=== PATIENT | female | born 1955 | race Caucasian/White ===

== ENCOUNTER 2019-11-11 08:55 | Outpatient (CLI) | payer MEDICARE, OTHER, SELFPAY ==
[2019-11-11 09:29] LABS: Hematocrit 41.5 % (37.0-47.0); Hemoglobin 13.6 g/dL (12.0-15.0); Mean Corpuscular HGB Conc 32.8 g/dl (32-36); Mean Corpuscular Hemoglobin 29.1 pg (26-34); Mean Corpuscular Volume 88.7 fl (80-100); Mean Platelet Volume 8.9 fl (7.4-10.4); Platelet Count Result 214 k/mm3 (150-375); Red Blood Count 4.68 M/mm3 (4.2-5.4); Red Cell Distribution Width 13.6 % (11.5-14.5); White Blood Count 6.2 K/mm3 (4.5-10.0)
[2019-11-11 09:38] LABS: Add Urine Microscopic? YES; Appearance Urine Clear (Clear); Bacteria Urine Trace /hpf; Bilirubin Urine Negative (Negative); Blood Urine 2+ (Negative); Color Urine Yellow (Yellow); Glucose Urine UA Negative (Negative); Hyaline Casts Urine 15-19 /lpf; Ketones Urine Negative (Negative); Leukocyte Esterase Ur Negative LEU/UL (NEGATIVE); Mucus Urine Moderate /lpf; Nitrate Urine Negative (Negative); Protein Urine 1+ mg/dL (Negative); Specific Grav Ur 1.018 (1.001-1.035); Squamous Epithelial Cell Urine Many /hpf (Few); Urobilinogen Urine Negative mg/dL (<2.0)
[2019-11-11 09:39] LABS: Alanine Aminotransferase 19 U/L (4-35); Albumin Level 4.2 g/dL (3.5-5.1); Alkaline Phosphatase 79 U/L (38-126); Aspartate Amino Transferase 24 U/L (14-36); Bilirubin,Total 0.5 mg/dL (0.2-1.3); Blood Urea Nitrogen 16 mg/dL (7-17); Calcium 8.8 mg/dL (8.4-10.2); Carbon Dioxide 28 mmol/L (22-30); Chloride 104 mmol/L (98-107); Cholesterol 162 mg/dL (0-200); Estimated Glomerular Filt Rate > 60; Glucose 95 mg/dL (65-105); HDL Direct 56 mg/dL; Hemoglobin A1C 6.3 % (<5.7); Potassium 4.3 mmol/L (3.4-5.0); Sodium 137 mmol/L (137-145); Triglycerides 159 mg/dL (<150)
[2019-11-11 09:50] LABS: LDL Cholesterol Direct 72 mg/dL
== END 2019-11-11 08:56 | disposition home or self-care (01) ==
LOC: ANHLAB 09:00
PROVIDERS: PCP Family Medicine; Visit Provider Family Medicine
DX: E78.2 Mixed hyperlipidemia (principal); R73.01 Impaired fasting glucose; R53.83 Other fatigue; E03.9 Hypothyroidism, unspecified
CPT/HCPCS: 36415; 80053; 80061; 81001; 83036; 84443; 85027

== ENCOUNTER 2020-05-02 13:59 | Outpatient (CLI) | payer MEDICARE, OTHER, SELFPAY | END 2020-05-02 14:00 | disposition home or self-care (01) | PROVIDERS: PCP Family Medicine; Visit Provider Family Medicine | DX: E03.9 Hypothyroidism, unspecified (principal) | CPT/HCPCS: 36415; 84443 ==

== ENCOUNTER 2020-07-06 14:35 | Outpatient (CLI) | payer MEDICARE, OTHER, SELFPAY | END 2020-07-06 14:36 | disposition home or self-care (01) | LOC: ANHLAB 14:37 | PROVIDERS: PCP Family Medicine; Visit Provider Family Medicine | DX: E03.9 Hypothyroidism, unspecified (principal) | CPT/HCPCS: 36415; 84443 ==

== ENCOUNTER 2020-11-28 10:17 | Outpatient (CLI) | payer MEDICARE, OTHER, SELFPAY ==
[2020-11-28 10:55] LABS: Alanine Aminotransferase 29 U/L (4-35); Albumin Level 4.3 g/dL (3.5-5.1); Alkaline Phosphatase 88 U/L (38-126); Anion Gap 7 mmol/L (8-16); Aspartate Amino Transferase 31 U/L (14-36); Bilirubin,Total 0.4 mg/dL (0.2-1.3); Blood Urea Nitrogen 10 mg/dL (7-17); Calcium 9.5 mg/dL (8.4-10.2); Carbon Dioxide 31 mmol/L (22-30); Chloride 101 mmol/L (98-107); Estimated Glomerular Filt Rate > 60; Glucose 91 mg/dL (65-105); Potassium 3.9 mmol/L (3.4-5.0); Sodium 139 mmol/L (137-145)
== END 2020-11-28 10:18 | disposition home or self-care (01) ==
PROVIDERS: PCP Family Medicine; Visit Provider Family Medicine
DX: E78.5 Hyperlipidemia, unspecified (principal); I10 Essential (primary) hypertension; R53.83 Other fatigue
CPT/HCPCS: 36415; 80053

== ENCOUNTER 2020-12-14 15:46 | Outpatient (CLI) | payer MEDICARE, OTHER, SELFPAY ==
[2020-12-14 16:39] LABS: Cholesterol 151 mg/dL (0-200); HDL Direct 57 mg/dL; Triglycerides 130 mg/dL (<150)
[2020-12-14 16:51] LABS: LDL Cholesterol Direct 63 mg/dL
[2020-12-14 17:09] LABS: Thyroid Stimulating Hormone 0.605 uIU/mL (0.465-4.680)
== END 2020-12-14 15:47 | disposition home or self-care (01) ==
LOC: ANHLAB 15:48
PROVIDERS: PCP Family Medicine; Visit Provider Family Medicine
DX: E03.9 Hypothyroidism, unspecified (principal); E78.5 Hyperlipidemia, unspecified
CPT/HCPCS: 36415; 80061; 84443

== ENCOUNTER 2020-12-21 13:56 | Outpatient (CLI) | payer MEDICARE, OTHER, SELFPAY ==
--- NOTE | ~2020-12-21 | CT_ITS ---
EXAMINATION: CT lung screening DATE: 12/21/2020 14:20 INDICATION: Personal history of tobacco dependence, prior smoker with 70 pack-year history TECHNIQUE: Computed tomography (CT) of the chest was performed without intravenous contrast. The dose -length product (DLP) was 232.49 mGy-cm. 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 COMPARISON: 09/17/2018 FINDINGS: There is moderate emphysema. There are multiple stable pulmonary nodules. A 4 mm subpleural nodule of the right lower lobe on image 73 demonstrates interval increase in size, previously measur ing 3 mm. There is minimal air space opacity in the posteromedial aspect of the right lower lobe, lik graciela infectious or inflammatory. Focal atelectasis is noted in the lingula. There is no pleural effusi on or pneumothorax. No pathologically enlarged thoracic lymph nodes are identified. The heart size is normal. Calcified coronary artery atherosclerosis is noted. There is severe thoracic spondylosis. IMPRESSION: 1. Lung-RADS category 2: Benign appearance or behavior. Continue annual screening with noncontrast lo w-dose chest CT in 12 months. Reviewed, dictated and finalized at location B. IMPRESSION: 1. Lung-RADS category 2: Benign appearance or behavior. Continue annual screeni ng with noncontrast low-dose chest CT in 12 months.
== END 2020-12-21 13:57 | disposition home or self-care (01) ==
LOC: ANHIMG 13:59
PROVIDERS: PCP Family Medicine; Visit Provider Family Medicine
DX: Z87.891 Personal history of nicotine dependence (principal)
CPT/HCPCS: 71271

== ENCOUNTER 2021-06-07 15:36 | Outpatient (CLI) | payer MEDICARE, OTHER, SELFPAY ==
[2021-06-07 16:45] LABS: Alanine Aminotransferase 20 U/L (4-35); Albumin Level 4.1 g/dL (3.5-5.1); Alkaline Phosphatase 79 U/L (38-126); Anion Gap 9 mmol/L (8-16); Aspartate Amino Transferase 27 U/L (14-36); Bilirubin,Total 0.4 mg/dL (0.2-1.3); Blood Urea Nitrogen 21 mg/dL (7-17); Carbon Dioxide 28 mmol/L (22-30); Chloride 99 mmol/L (98-107); Estimated Glomerular Filt Rate > 60; Glucose 95 mg/dL (65-110); Potassium 4.2 mmol/L (3.4-5.0); Sodium 136 mmol/L (137-145)
[2021-06-07 17:14] LABS: Thyroid Stimulating Hormone 0.253 uIU/mL (0.465-4.680)
== END 2021-06-07 15:37 | disposition home or self-care (01) ==
LOC: ANHLAB 15:39
PROVIDERS: PCP Family Medicine; Visit Provider Family Medicine
DX: E03.9 Hypothyroidism, unspecified (principal); I10 Essential (primary) hypertension
CPT/HCPCS: 36415; 80053; 84443

== ENCOUNTER 2021-08-07 15:28 | Outpatient (CLI) | payer MEDICARE, OTHER, SELFPAY ==
[2021-08-07 16:28] LABS: Free T4 Free Thyroxine 0.82 ng/mL (0.78-2.19)
== END 2021-08-07 15:29 | disposition home or self-care (01) ==
LOC: ANHLAB 15:30
PROVIDERS: PCP Family Medicine; Visit Provider Family Medicine
DX: E03.9 Hypothyroidism, unspecified (principal)
CPT/HCPCS: 36415; 84439; 84443

== ENCOUNTER 2021-10-21 10:28 | Inpatient (IN) | payer MEDICARE, OTHER, SELFPAY ==
[2021-10-21] VITALS (56 sets, daily range): BP systolic 84–158; BP diastolic 59–105; PULSE 80–103; RESP 10–28; TEMP 36.2–37.1; O2SAT 79–100; BMI 36.7
--- NOTE | ~2021-10-21 | CT_ITS ---
EXAMINATION: CTA chest PE protocol DATE: 10/21/2021 14:50 INDICATION: sob, covid + TECHNIQUE: Computed tomography angiography (CTA) of the chest was performed with 100 mL Omnipaque-350 intravenous contrast timed to evaluate the pulmonary arteries. Coronal maximum intensity projection 3D-reconstructions were created by the technologist. The dose-length product (DLP) was 757.38 mGy-cm. Automated exposure control and iterative reconstruction technique were employed. COMPARISON: CT lung screening 12/21/2020. CT chest without 09/17/2018 and 10/18/2015. FINDINGS: Study quality: Adequate. Pulmonary arteries: No pulmonary emboli detected. Thoracic aorta: Normal. Lung parenchyma and airways: Lingular scar/atelectasis. Emphysematous change. Apical pleural scarring . Multiple pulmonary nodules. Thoracic inlet, axillae and chest wall: 1.6 x 2.1 cm heterogeneously enhancing soft tissue mass in th e right lower neck which may represent a lymph node or ectopic thyroid, if ectopic thyroid and may co ntain a 1.7 cm cyst. Mediastinum: Normal. Heart and pericardium: Normal. Coronary artery calcifications: Mild. Pleura: Unremarkable. Upper abdomen: Multiple left renal cysts. Mild ectopic left kidney. Significant pancreatic fat infilt ration. Hiatal hernia. Bones: No acute osseous finding. IMPRESSION: No CT evidence of acute pulmonary embolus. Multiple pulmonary nodules, prior recommendations are unch anged. Right lower neck lymphadenopathy versus ectopic thyroid. Recommend outpatient thyroid ultrasou nd for further evaluation. Reviewed, dictated and finalized at location K. IMPRESSION: No CT evidence of acute pulmonary embolus. Multiple pulmonary nodules, prior re commendations are unchanged. Right lower neck lymphadenopathy versus ectopic th yroid. Recommend outpatient thyroid ultrasound for further evaluation.
--- NOTE | ~2021-10-21 | XR_ITS ---
EXAMINATION: XR chest 1V portable DATE: 10/21/2021 11:24 INDICATION: Shortness of breath TECHNIQUE: frontal and lateral views of the chest were obtained. COMPARISON: Chest CT dated 12/21/2020 FINDINGS: Emphysema but appreciated on prior CT with mild biapical pleural-parenchymal scarring. Mild lingular atelectasis/scarring along side a small left pericardial fat pad. No other airspace opacities, pulmon lydia edema, pleural effusion or pneumothorax. The cardiomediastinal silhouette is normal. Small hiatal hernia. IMPRESSION: 1. Emphysema with biapical pleural-parenchymal scarring and mild lingular atelectasis/scarring. No ac [place] cardiopulmonary disease. 2. Small hiatal hernia. Reviewed, dictated and finalized at location A. IMPRESSION: 1. Emphysema with biapical pleural-parenchymal scarring and mild lingular atele ctasis/scarring. No acute cardiopulmonary disease. 2. Small hiatal hernia.
--- NOTE | 2021-10-21 11:03 | ECG_ITS ---
Measurements Intervals [place] Rate: 98 P: 37 PA: 176 QRS: -28 QRSD: 69 T: 30 QT: 309 QTc: 394 Interpretive Statements SINUS RHYTHM LOW QRS VOLTAGE IN PRECORDIAL LEADS CONSIDER ANTERIOR INFARCT, AGE INDETERMINATE INFERIOR INFARCT, AGE INDETERMINATE BASELINE ARTIFACT- I, II, AVR, AVL, AVF, V1 ABNORMAL ECG Electronically Signed On 10-21-2021 11:28:42 CDT by Ricardo Mccarthy D.O.
[2021-10-21 11:20] LABS: Basophils Percent Auto 0.2 % (0.2-1.2); Eosinophils Absolute Auto 0.1 K/mm3 (0-0.3); Hematocrit 37.9 % (37.0-47.0); Hemoglobin 12.1 g/dL (12.0-15.0); Immature Granulocyte Absolute 0.04 K/mm3 (0.00-0.031); Immature Granulocyte Percent A 0.5 % (0-0.5); Lymphocytes Percent Auto 13.7 % (18.3-44.2); Mean Corpuscular HGB Conc 31.9 g/dl (32-36); Mean Corpuscular Hemoglobin 29.7 pg (26-34); Mean Corpuscular Volume 92.9 fl (80-100); Mean Platelet Volume 9.5 fl (7.4-10.4); Monocytes Absolute Auto 0.7 K/mm3 (0.1-0.6); Monocytes Percent Auto 9.1 % (2.6-8.5); Neutrophils Percent Auto 75.5 % (45.5-73.1); Platelet Count Result 169 k/mm3 (150-375); Red Blood Count 4.08 M/mm3 (4.2-5.4); Red Cell Distribution Width 15.3 % (11.5-14.5)
--- NOTE | 2021-10-21 11:24 | ED.GENADULT ---
HPI - General Adult General Chief complaint: Unspecified <CABRERA Shannon Last Filed: 10/21/21 15:55> Stated complaint: Sore Throat, Dizzy <CABRERA Shannon Last Filed: 10/21/21 15:55> Time Seen by Provider: 10/21/21 11:03 <CABRERA Shannon Last Filed: 10/21/21 15:55> Source: patient <CABRERA Shannon Last Filed: 10/21/21 15:55> Mode of arrival: ambulatory <CABRERA Shannon Last Filed: 10/21/21 15:55> Limitations: no limitations <CABRERA Shannon Last Filed: 10/21/21 15:55> History of Present Illness HPI narrative: This is a 66 year old female that presents to the ER for cold symptoms present over the last couple of days. Reports sore throat, cough, myalgias, headache, and shortness of breath. Reports history of COPD. She is COVID and influenza vaccinated. Denies fever, chest pain or lower extremity edema. <CABRERA Shannon Last Filed: 10/21/21 15:55> Related Data Home medications: Home Medications Medication Instructions Recorded Confirmed albuterol sulfate 90 mcg/actuation 1 puff INHALATION Q4H PRN 04/27/19 10/21/21 aerosol inhaler omega-3 fatty acids [Fish Oil] 1,000 mg PO DAILY 10/21/21 10/21/21 tizanidine 4 mg PO HS 10/21/21 10/21/21 <CABRERA Shannon Last Filed: 10/21/21 15:55> Allergies/adverse reactions: Allergies Allergy/AdvReac Type Severity Reaction Status Date / Time No Known Allergies Allergy Verified 10/21/21 11:06 <CABRERA Shannon Last Filed: 10/21/21 15:55> Review of Systems Review of Systems: CONSTITUTIONAL: Denies fever ENT: Reports congestion, sore throat CARDIOVASCULAR: Denies chest pain, or edema. RESPIRATORY: Reports cough and dyspnea. MUSCULOSKELETAL: Reports back pain, joint pain, and myalgia. NEUROLOGIC: Reports headache. Denies numbness, or weakness. <Anna Gamble PA-C - Last Filed: 10/21/21 15:55> All systems reviewed & are unremarkable except as noted in HPI and below <Anna Gamble PA-C - Last Filed: 10/21/21 15:55> PMFSH Past Medical History Medical History: Medical History (Updated 10/21/21 @ 15:50 by Anna Gamble PA-C) Acquired hypothyroidism COPD (chronic obstructive pulmonary disease) Fibromyalgia HLD (hyperlipidemia) HTN (hypertension) <Anna Gamble PA-C - Last Filed: 10/21/21 15:55> Surgical History Surgical History: Surgical History History of unilateral oophorectomy Hx of thumb surgery L x 3 due to infx Status post carpal tunnel release Status post cataract extraction Status post hernia repair Status post hysterectomy Status post vein stripping <Anna Gamble PA-C - Last Filed: 10/21/21 15:55> Family History Family History: Family History Mother Family history of schizophrenia Acute myocardial infarction, Onset Age: 83 Family history of Alzheimer's disease Father Acute myocardial infarction, Onset Age: 75 <Anna Gamble PA-C - Last Filed: 10/21/21 15:55> Social History Social History: Social History Smoking packs per day: 2 Smoking cigarettes per day: 40.0 Years smoked: 35 Smoking pack-years: 70.00 Smoking status: Former smoker Tobacco type: cigarettes Second hand tobacco smoke exposure: Yes Smoking end date: 06/03/06 Alcohol intake: current Alcohol use details: rare Substance use: never Substance use type: does not use Gender identity (if verbalized by the patient): Female <Anna Gamble PA-C - Last Filed: 10/21/21 15:55> Exam Narrative: GENERAL: Well-appearing, well-nourished, and in no acute distress. HEAD: Normocephalic, atraumatic. EYES: EOMI. ENT: Nares clear, no rhinorrhea or epistaxis. Mucous membranes moist. Oropharynx with mild redness, without tonsillar hypertrophy, exu
[2021-10-21 11:31] LABS: Lactic Acid Reflex 0.7 mmol/L (0.7-2.0)
[2021-10-21 11:32] LABS: Prothrombin Time 13.1 Seconds (11.1-14.7)
[2021-10-21 11:35] LABS: Alanine Aminotransferase 21 U/L (6-35); Albumin Level 3.9 g/dL (3.5-5.1); Alkaline Phosphatase 84 U/L (38-126); Anion Gap 8 mmol/L (8-16); Aspartate Amino Transferase 29 U/L (14-36); Bilirubin,Total 0.4 mg/dL (0.2-1.3); Blood Urea Nitrogen 21 mg/dL (7-17); CRP 6.8 mg/dL (<1.0); Calcium 8.7 mg/dL (8.4-10.2); Carbon Dioxide 25 mmol/L (22-30); Chloride 102 mmol/L (98-107); Estimated CRCL calculation 40 ml/min; Estimated Glomerular Filt Rate 41; Glucose 86 mg/dL (65-110); Lactate Dehydrogenase 378 U/L (313-618); Potassium 4.3 mmol/L (3.4-5.0); Sodium 135 mmol/L (137-145)
--- NOTE | 2021-10-21 11:45 | PC.NURSE ---
Report to SAVITA Dixon, to continue care. Preparing to swab pt as ordered and give med po.
[2021-10-21 11:52] LABS: Troponin I < 0.012 ng/mL (0.000-0.034)
[2021-10-21] MEDS: ACETAMINOPHEN 500 MG TABLET 1000 MG PO (11:55)
[2021-10-21 13:05] LABS: Influenza A QL RT-PCR Negative (Negative); Influenza B QL RT-PCR Negative (Negative); SARS-CoV-2 RNA PCR Positive
--- NOTE | 2021-10-21 13:23 | PC.NURSE ---
PT 85% ROOM AIR AND PLACED ON 3LNC
[2021-10-21] MEDS: SODIUM CHLORIDE 0.9% IV 500 ML 999 ML IV CONT (13:39)
--- NOTE | 2021-10-21 13:43 | PC.NURSE ---
called lab and talked to Caprice at 1341 to add on a D dimer
[2021-10-21 14:03] LABS: D Dimer 0.52 ug/mL (<0.48)
--- NOTE | 2021-10-21 15:15 | PM.IMHP ---
H&P: HPI History of Present Illness Date/Time: 10/21/21 15:15 Chief Complaint: Shortness of breath. Narrative: This is a 66-year-old female with COPD, hypertension, hyperlipidemia, and hypothyroidism who presented to the emergency department from home for evaluation of shortness of breath and sore throat. She has not been feeling well for about 5 days with generalized malaise, sore throat, mild cough, headache, nausea, and decreased oral intake. The last couple of days she has been feeling increasingly short of breath from baseline and she came in today for evaluation. In the emergency department she had periods of time where her SPO2 was in the upper 80s and she has been started on 2 L nasal cannula with improvement. She did test positive for SARS-CoV-2 by PCR; she was vaccinated for COVID and has received 1 booster. She denies fever but had hot flashes and sweats earlier today. She continues to have nausea but no vomiting. No chest pain, pleuritic pain, or diarrhea. Review of Systems Review of Systems: 12 systems were reviewed. She has chronic dyspnea on exertion, for instance she will get winded when going up a flight of steps and she typically walks with a cart while out shopping due to shortness of breath. She is no longer on inhalers at home due to history of recurrent rash. She denies wheezing. No orthopnea, PND, or lower extremity edema. Except as documented, all other systems were reviewed and are negative PMFSH Past Medical History Medical History (Updated 10/21/21 @ 21:45 by Lucia Ramirez PA-C) Acquired hypothyroidism Chronic GERD Chronic obstructive pulmonary disease Fibromyalgia Hyperlipidemia Hypertension Overactive bladder Pulmonary nodules Surgical History Surgical History History of unilateral oophorectomy Hx of thumb surgery L x 3 due to infx Status post carpal tunnel release Status post cataract extraction Status post hernia repair Status post hysterectomy Status post vein stripping Family History Family History Mother Acute myocardial infarction, Onset Age: 83 Family history of Alzheimer's disease Family history of schizophrenia Father Acute myocardial infarction, Onset Age: 75 Sibling Heart disease Multiple sclerosis Blood clotting tendency Social History Social History (Updated 10/21/21 @ 18:47 by Lucia Ramirez PA-C) Social History: Surrogate decision maker: Radu Cervantes, spouse. CODE STATUS: Full code. Smoking packs per day: 2 Smoking cigarettes per day: 40.0 Years smoked: 35 Smoking pack-years: 70.00 Smoking status: Former smoker Tobacco type: cigarettes Second hand tobacco smoke exposure: Yes Smoking end date: 01/01/09 Alcohol intake: never Alcohol use details: rare Substance use: never Substance use type: does not use Spiritual care concerns: No Meds Home Medications and Allergies Home Medications Medication Instructions Recorded Confirmed Type albuterol sulfate 90 mcg/actuation 1 puff INHALATION Q4H PRN 04/27/19 10/21/21 History aerosol inhaler pregabalin 150 mg capsule 150 mg PO TID #270 cap 06/29/20 10/21/21 Rx tramadol 50 mg tablet 50 mg PO Q6H PRN #60 tablet 06/29/20 10/21/21 Rx duloxetine 30 mg capsule,delayed 30 mg PO QID #360 cap 04/07/21 10/21/21 Rx release fluoxetine 20 mg capsule 20 mg PO DAILY #90 cap 04/07/21 10/21/21 Rx amlodipine 5 mg tablet 5 mg PO DAILY #90 tablet 08/07/21 10/21/21 Rx lisinopril 40 mg tablet 40 mg PO DAILY #90 tablet 08/07/21 10/21/21 Rx omeprazole 40 mg capsule,delayed 40 mg PO DAILY #90 cap 08/07/21 10/21/21 Rx release meloxicam 15 mg tablet 15 mg PO DAILY #90 tablet 09/06/21 10/21/21 Rx rosuvastatin 20 mg tablet 20 mg PO DAILY #90 tablet 09/06/21 10/21/21 Rx mirabegron 50 mg tablet,extended 50 mg PO DAILY #90 tablet 10/13/21 10/21/21 Rx release 24 hr levothyroxi
[2021-10-21] MEDS: REMDESIVIR 200 MG/NS 250 ML 200 MG/250 ML BAG 250 MG IVPB (15:17)
--- NOTE | 2021-10-21 16:40 | PC.NURSE ---
This patient, Leslee Cervantes, was admitted to [facility] Surg Room 303-01. Patient/family oriented to hospital policies and general routines including ID bracelet, bed and alarms, visiting hours, pain management, procedures, bathroom and other care routines, personal items, smoking policy, room service/diet, and visiting hours. Destiny BARNEY Information on how to activate the Rapid Response Team has been discussed. Patient/Family are encouraged to report perceived risks to care and to ask questions if they do not understand what they are told or what they should do.
[2021-10-21] MEDS: SODIUM CHLORIDE 0.9% IV 1,000 ML 100 ML IV CONT (18:06)
[2021-10-21] MEDS: TIZANIDINE HCL 4 MG TABLET PO (22:36)
[2021-10-22] VITALS (8 sets, daily range): BP systolic 121–143; BP diastolic 71–91; PULSE 73–103; RESP 16–20; TEMP 36.5–36.8; O2SAT 93–95
[2021-10-22] MEDS: LEVOTHYROXINE SODIUM 100 MCG TABLET PO (05:45)
[2021-10-22 06:26] LABS: Hematocrit 35.5 % (37.0-47.0); Hemoglobin 11.2 g/dL (12.0-15.0); Mean Corpuscular HGB Conc 31.5 g/dl (32-36); Mean Corpuscular Hemoglobin 29.7 pg (26-34); Mean Corpuscular Volume 94.2 fl (80-100); Mean Platelet Volume 9.6 fl (7.4-10.4); Platelet Count Result 160 k/mm3 (150-375); Red Blood Count 3.77 M/mm3 (4.2-5.4)
[2021-10-22 06:36] LABS: Alanine Aminotransferase 21 U/L (6-35); Albumin Level 3.7 g/dL (3.5-5.1); Alkaline Phosphatase 78 U/L (38-126); Anion Gap 8 mmol/L (8-16); Aspartate Amino Transferase 25 U/L (14-36); Bilirubin,Total 0.2 mg/dL (0.2-1.3); Blood Urea Nitrogen 24 mg/dL (7-17); CRP 6.5 mg/dL (<1.0); Calcium 8.2 mg/dL (8.4-10.2); Carbon Dioxide 23 mmol/L (22-30); Chloride 104 mmol/L (98-107); Estimated CRCL calculation 57 ml/min; Estimated Glomerular Filt Rate > 60; Glucose 125 mg/dL (65-110); Lactate Dehydrogenase 363 U/L (313-618); Magnesium 1.9 mg/dL (1.6-2.3); Potassium 4.6 mmol/L (3.4-5.0); Sodium 135 mmol/L (137-145)
[2021-10-22 06:38] LABS: Prothrombin Time 13.1 Seconds (11.1-14.7)
[2021-10-22] MEDS: DULoxetine HCL 30 MG CAPSULE.DR PO ×4 (08:27→20:35)
[2021-10-22] MEDS: PANTOPRAZOLE 40 MG TABLET PO ×2 (08:27→17:30)
[2021-10-22] MEDS: DEXAMETHASONE 2 MG TABLET 6 MG PO (08:27)
[2021-10-22] MEDS: ROSUVASTATIN 10 MG TABLET 20 MG PO (08:27)
[2021-10-22] MEDS: MIRABEGRON 50 MG ER TABLET PO (08:28)
[2021-10-22] MEDS: FLUoxetine HCL 20 MG CAPSULE PO (08:28)
[2021-10-22] MEDS: OMEGA 3 POLYUNSAT FATTY ACIDS 1 GM CAP PO (08:28)
[2021-10-22] MEDS: lisinopriL 20 MG TABLET 40 MG PO (08:28)
[2021-10-22] MEDS: MELOXICAM 7.5 MG TABLET 15 MG PO (08:28)
[2021-10-22] MEDS: amLODIPine BESYLATE 5 MG TABLET PO (08:28)
[2021-10-22] MEDS: LOPERAMIDE HCL 2 MG CAPSULE 4 MG PO (08:29)
[2021-10-22] MEDS: ENOXAPARIN 40 MG/0.4 ML SYRINGE SUB-Q (08:29)
[2021-10-22] MEDS: guaiFENesin 12 HR 600 MG TABCR PO ×2 (08:29→20:35)
[2021-10-22] MEDS: PREGABALIN (*CRX) 75 MG CAPSULE 150 MG PO ×3 (08:31→17:30)
--- NOTE | 2021-10-22 11:03 | PM.IMPN ---
Progress Note: A&P Assessment and Plan (1) COVID-19: Code(s): U07.1 - COVID-19 Status: Acute Assessment and Plan: Place in COVID19 isolation precautions, cardiac monitoring, and continuous pulse ox Monitor serum electrolytes, CRP, Lactic acid, troponin, CBC, WBC, temperature curve and follow cultures Oxygen via NC; wean as tolerated. Keep spO2 greater than 91% Hold IV abx, minimal leuokocytosis, if patient appears to have a bacterial pneumonia, IV Ceftriaxone 2 gram IV q24hr and Azithromycin 500mg IV 24 hours will be initiated Consider Consulting Pulmonary if the patient has an increased oxygen demand. Patient does not wear oxygen at baseline. When appropriate start CPAP or Vapotherm to maintain oxygen saturation Pt is a candidate for Remdesivir and Dexamethasone, continue treatment according to suggested guidelines. Remdesivir 200 mg IV x1, then 100 mg IV x4 days, dexamethasone 6 mg IV daily x 10 days, or until discharge Combivent 2 puffs QID, PRN albuterol MDI and mucinex BID PO. If oxygen requirement increase, consider baricitinib (CLEO inhibtor) 4 mg PO daily for 14 days, or until discharge. Add Imodium for diarrhea GI prophylaxis: PPI Hold IV fluids due to possible fluid volume overload due to COVID, consider IV Lasix if patient appears to be fluid volume overloaded (2) Hypoxia: Code(s): R09.02 - Hypoxemia Status: Acute Assessment and Plan: Secondary to COVID-19 and COPD. Wean oxygen as tolerated. -*-improving (3) Acute kidney injury: Code(s): N17.9 - Acute kidney failure, unspecified Status: Acute Assessment and Plan: Secondary to dehydration from poor oral intake. Hydrate overnight and encourage oral intake. Avoid nephrotoxic agents and repeat renal function in a.m. (4) Dehydration: Code(s): E86.0 - Dehydration Status: Acute Assessment and Plan: Plan is as detailed above. (5) Hypertension: Code(s): I10 - Essential (primary) hypertension Status: Acute Assessment and Plan: Blood pressures were reviewed and they have been running a bit high. Continue antihypertensives and monitor daily. (6) Pulmonary nodules: Code(s): R91.8 - Other nonspecific abnormal finding of lung field Status: Acute Assessment and Plan: Being followed on serial CT scans as an outpatient. (7) Abnormal imaging of thyroid: Code(s): R93.89 - Abnormal findings on diagnostic imaging of other specified body structures Status: Acute Assessment and Plan: CT shows right lower neck lymphadenopathy versus ectopic thyroid. Thyroid ultrasound can be done as an outpatient. (8) Chronic obstructive pulmonary disease: Code(s): J44.9 - Chronic obstructive pulmonary disease, unspecified Status: Acute Assessment and Plan: No significant wheezing on exam. Albuterol HFA p.r.n. Subjective Date/time seen: 10/22/21 11:03 Patient doing well this morning. She is currently on room air at 94% SpO2. Dexamethasone and remdesivir continue. No acute concerns reported by RN during the night. Patient denies any acute chest pain, shortness breast, nausea, vomiting upset stomach or diarrhea. Review of Systems Review of Systems: All systems reviewed & are unremarkable except as noted in HPI and below Exam Narrative: General: Mildly ill-appearing female sitting up in bed. Weight: 94.1 kg. BMI: 36.7 HEENT: PERRL, EOMI. Sclerae anicteric. Tacky mucous membranes. Neck: Supple. Soft masslike area at the base of the right neck: Nontender. Respiratory: Respirations are nonlabored and she is speaking in full sentences. Lung sounds are diminished without wheezing. Cardiovascular: Regular rate and rhythm with S1-S2. Gastrointestinal: Abdomen is soft, nontender, and nondistended with positive bowel sounds. Skin: Warm and dry. No rash or lesions on limited exam. Extremities: No cyanosis, clubbing, or
[2021-10-22] MEDS: TIZANIDINE HCL 4 MG TABLET PO (20:35)
[2021-10-22] MEDS: REMDESIVIR 100 MG/NS 250 ML 100 MG/250 ML BAG 250 MG IVPB (21:14)
[2021-10-23] VITALS (7 sets, daily range): BP systolic 120–143; BP diastolic 65–93; PULSE 79–99; RESP 16–18; TEMP 36.3–36.6; O2SAT 94–97
[2021-10-23] MEDS: LOPERAMIDE HCL 2 MG CAPSULE PO ×3 (04:58→11:03)
[2021-10-23] MEDS: LEVOTHYROXINE SODIUM 100 MCG TABLET PO (05:30)
[2021-10-23 07:47] LABS: Hematocrit 35.2 % (37.0-47.0); Hemoglobin 11.5 g/dL (12.0-15.0); Immature Granulocyte Absolute 0.03 K/mm3 (0.00-0.031); Immature Granulocyte Percent A 0.5 % (0-0.5); Lymphocytes Absolute Auto 1.07 K/mm3 (0.9-3.2); Lymphocytes Percent Auto 17.1 % (18.3-44.2); Mean Corpuscular HGB Conc 32.7 g/dl (32-36); Mean Corpuscular Hemoglobin 29.8 pg (26-34); Mean Corpuscular Volume 91.2 fl (80-100); Mean Platelet Volume 9.4 fl (7.4-10.4); Monocytes Absolute Auto 0.5 K/mm3 (0.1-0.6); Monocytes Percent Auto 7.5 % (2.6-8.5); Neutrophils Absolute Auto 4.7 K/mm3 (1.3-6.7); Neutrophils Percent Auto 74.9 % (45.5-73.1); Platelet Count Result 173 k/mm3 (150-375); Red Blood Count 3.86 M/mm3 (4.2-5.4); Red Cell Distribution Width 15.1 % (11.5-14.5); White Blood Count 6.3 K/mm3 (4.5-10.0)
[2021-10-23 07:57] LABS: Alanine Aminotransferase 21 U/L (6-35); Albumin Level 3.7 g/dL (3.5-5.1); Alkaline Phosphatase 74 U/L (38-126); Anion Gap 6 mmol/L (8-16); Aspartate Amino Transferase 24 U/L (14-36); Bilirubin,Total 0.2 mg/dL (0.2-1.3); Blood Urea Nitrogen 20 mg/dL (7-17); Calcium 8.7 mg/dL (8.4-10.2); Carbon Dioxide 26 mmol/L (22-30); Chloride 105 mmol/L (98-107); Estimated CRCL calculation 64 ml/min; Estimated Glomerular Filt Rate > 60; Glucose 102 mg/dL (65-110); Sodium 137 mmol/L (137-145)
[2021-10-23 07:59] LABS: INR 1.1; Prothrombin Time 13.6 Seconds (11.1-14.7)
[2021-10-23] MEDS: MELOXICAM 7.5 MG TABLET 15 MG PO (09:06)
[2021-10-23] MEDS: ENOXAPARIN 40 MG/0.4 ML SYRINGE SUB-Q (09:06)
[2021-10-23] MEDS: DULoxetine HCL 30 MG CAPSULE.DR PO (09:06)
[2021-10-23] MEDS: amLODIPine BESYLATE 5 MG TABLET PO (09:06)
[2021-10-23] MEDS: MIRABEGRON 50 MG ER TABLET PO (09:06)
[2021-10-23] MEDS: DEXAMETHASONE 2 MG TABLET 6 MG PO (09:06)
[2021-10-23] MEDS: guaiFENesin 12 HR 600 MG TABCR PO (09:06)
[2021-10-23] MEDS: OMEGA 3 POLYUNSAT FATTY ACIDS 1 GM CAP PO (09:07)
[2021-10-23] MEDS: FLUoxetine HCL 20 MG CAPSULE PO (09:07)
[2021-10-23] MEDS: lisinopriL 20 MG TABLET 40 MG PO (09:07)
[2021-10-23] MEDS: ROSUVASTATIN 10 MG TABLET 20 MG PO (09:07)
[2021-10-23] MEDS: PANTOPRAZOLE 40 MG TABLET PO (09:07)
[2021-10-23] MEDS: PREGABALIN (*CRX) 75 MG CAPSULE 150 MG PO (09:17)
--- NOTE | 2021-10-23 09:58 | PM.DS ---
DS: Admitting Diagnosis Discharge Date 10/23/2021 Admitting Diagnosis COVID-19 pneumonia Acute hypoxic respiratory failure requiring supplemental oxygen Diarrhea DS: Discharge Diagnosis Discharge Diagnosis (1) COVID-19: Code(s): U07.1 - COVID-19 Status: Acute Assessment and Plan: Place in [place] [address] isolation precautions, cardiac monitoring, and continuous pulse ox Monitor serum electrolytes, CRP, Lactic acid, troponin, CBC, WBC, temperature curve and follow cultures Oxygen via NC; wean as tolerated. Keep spO2 greater than 91% Hold IV abx, minimal leuokocytosis, if patient appears to have a bacterial pneumonia, IV Ceftriaxone 2 gram IV q24hr and Azithromycin 500mg IV 24 hours will be initiated Consider Consulting Pulmonary if the patient has an increased oxygen demand. Patient does not wear oxygen at baseline. When appropriate start CPAP or Vapotherm to maintain oxygen saturation Pt is a candidate for Remdesivir and Dexamethasone, continue treatment according to suggested guidelines. Remdesivir 200 mg IV x1, then 100 mg IV x4 days, dexamethasone 6 mg IV daily x 10 days, or until discharge Combivent 2 puffs QID, PRN albuterol MDI and mucinex BID PO. If oxygen requirement increase, consider baricitinib (CLEO inhibtor) 4 mg PO daily for 14 days, or until discharge. Add Imodium for diarrhea GI prophylaxis: PPI Hold IV fluids due to possible fluid volume overload due to COVID, consider IV Lasix if patient appears to be fluid volume overloaded (2) Hypoxia: Code(s): R09.02 - Hypoxemia Status: Acute Assessment and Plan: Secondary to COVID-19 and COPD. Wean oxygen as tolerated. -*-improving (3) Acute kidney injury: Code(s): N17.9 - Acute kidney failure, unspecified Status: Acute Assessment and Plan: Secondary to dehydration from poor oral intake. Hydrate overnight and encourage oral intake. Avoid nephrotoxic agents and repeat renal function in a.m. --improved (4) Dehydration: Code(s): E86.0 - Dehydration Status: Acute Assessment and Plan: Plan is as detailed above. (5) Hypertension: Code(s): I10 - Essential (primary) hypertension Status: Acute Assessment and Plan: Blood pressures were reviewed and they have been running a bit high. Continue antihypertensives and monitor daily. (6) Pulmonary nodules: Code(s): R91.8 - Other nonspecific abnormal finding of lung field Status: Acute Assessment and Plan: Being followed on serial CT scans as an outpatient. (7) Abnormal imaging of thyroid: Code(s): R93.89 - Abnormal findings on diagnostic imaging of other specified body structures Status: Acute Assessment and Plan: CT shows right lower neck lymphadenopathy versus ectopic thyroid. Thyroid ultrasound can be done as an outpatient. (8) Chronic obstructive pulmonary disease: Code(s): J44.9 - Chronic obstructive pulmonary disease, unspecified Status: Acute Assessment and Plan: No significant wheezing on exam. Albuterol HFA p.r.n. DS: Summary Hospital Course Reason for hospitalization: COVID-19, shortness of breath Hospital Course: Patient is a 66-year-old female with past medical history of COPD, hypertension, hyperlipidemia and hypothyroidism. She presented to [facility] after feeling short of breath at home and having an associated sore throat. Patient reports she had not been feeling well for several days, approximately 5 days she has been dealing with generalized malaise, sore throat, mild cough and headache as well as associated nausea and vomiting with diarrhea. She has decreased oral intake but does not report any significant weight loss the last 6 months. The patient reports that she has been feeling increasingly short of breath from baseline she came in for evaluation. While in the emergency department are SpO2 was noted to be in the 80s and
== END 2021-10-23 11:40 | disposition home or self-care (01) | DRG 177 ==
LOC: ANHED 15:50 → ANH3MEDSUR 15:51
PROVIDERS: Physician Assistant; Admitting Provider Internal Medicine; Emergency Provider Emergency Medicine; PCP Family Medicine; Visit Provider Nurse Practitioner Family
DX: U07.1 COVID-19 (principal); J96.01 Acute respiratory failure with hypoxia; N17.9 Acute kidney failure, unspecified; E86.0 Dehydration; J43.9 Emphysema, unspecified; I10 Essential (primary) hypertension; E78.5 Hyperlipidemia, unspecified; R91.8 Other nonspecific abnormal finding of lung field; R93.89 Abnormal findings on diagnostic imaging of other specified body structures; M79.7 Fibromyalgia; K21.9 Gastro-esophageal reflux disease without esophagitis; Z79.899 Other long term (current) drug therapy; Z87.891 Personal history of nicotine dependence; Z98.49 Cataract extraction status, unspecified eye
CPT/HCPCS: 36415; 71045; 71275; 80053; 82728; 83605; 83615; 83735; 84484; 85025; 85027; 85380; 85610; 85730; 86140; 87081; 87502; 87880; 93005; 96361; 96372; 96374; 96375; 99285; A9270; C9803; G0378; J0248; J1100; J1650; J7030; J7040; J8540; Q9967; U0003; U0005

== ENCOUNTER 2021-12-25 12:26 | Outpatient (CLI) | payer MEDICARE, OTHER, SELFPAY ==
[2021-12-25 13:30] VITALS: PULSE 87; O2SAT 92
[2021-12-25 13:35] VITALS: PULSE 101; O2SAT 85
[2021-12-25 13:40] VITALS: PULSE 102; O2SAT 86
[2021-12-25 13:45] VITALS: PULSE 100; O2SAT 93
[2021-12-25 13:50] VITALS: PULSE 100; O2SAT 93
--- NOTE | 2021-12-25 14:04 | HOMEO2EVAL ---
Evaluation was performed at [facility] Home Oxygen Evaluation RC: Home Oxygen (O2) Evaluation Start: 12/25/21 13:59 Freq: Status: Active Protocol: RPE Activity Type Activity Date Activity User E-sign Co-sign Detail Recorded Client Recorded Date Recorded By Document 12/25/21 13:30 COLBY [email or web address] 12/25/21 14:03 COLBY Document 12/25/21 13:35 COLBY [email or web address] 12/25/21 14:03 COLBY Document 12/25/21 13:40 COLBY [email or web address] 12/25/21 14:03 COLBY Document 12/25/21 13:45 COLBY [email or web address] 12/25/21 14:03 COLBY Document 12/25/21 13:50 [email or web address] [email or web address] 12/25/21 14:03 OCLBY 12/25/21 12/25/21 12/25/21 13:30 13:35 13:40 Home O2 Evaluation Test Phase Resting Exercise Exercise Oxygen Delivery Room Air Room Air Oxygen Flow Rate (L/min) 1 Fraction of Inspired Oxygen (%) 24 Pulse Oximetry (90-100 %) 92 85 L 86 L Pulse Rate (60-100 beats/min) 87 101 H 102 H Activity Tolerance Good Fair Good Ambulation Distance (feet) Ambulation Distance (meters) Home Oxygen Evaluation Comments Treatment Charges O2 Evaluation - Outpatient 12/25/21 12/25/21 13:45 13:50 Home O2 Evaluation Test Phase Exercise Resting Oxygen Delivery Nasal Cannula Room Air Oxygen Flow Rate (L/min) 2 Fraction of Inspired Oxygen (%) 28 Pulse Oximetry (90-100 %) 93 93 Pulse Rate (60-100 beats/min) 100 100 Activity Tolerance Good Ambulation Distance (feet) 400 Ambulation Distance (meters) 121.91 Home Oxygen Evaluation Comments pATIENT REQUIRES 2LPM NASAL CANNULA WITH ACTIVITY Treatment Charges
== END 2021-12-25 12:27 | disposition home or self-care (01) ==
LOC: ANHPFT 12:28
PROVIDERS: PCP Family Medicine; Visit Provider Family Medicine
DX: R06.00 Dyspnea, unspecified (principal); J44.9 Chronic obstructive pulmonary disease, unspecified
CPT/HCPCS: 94618

== ENCOUNTER 2022-01-17 10:30 | Outpatient (CLI) | payer MEDICARE, OTHER, SELFPAY ==
[2022-01-17 10:57] LABS: Hematocrit 35.7 % (37.0-47.0); Hemoglobin 11.6 g/dL (12.0-15.0); Mean Corpuscular HGB Conc 32.5 g/dl (32-36); Mean Corpuscular Hemoglobin 31.2 pg (26-34); Mean Platelet Volume 9.3 fl (7.4-10.4); Platelet Count Result 234 k/mm3 (150-375); Red Blood Count 3.72 M/mm3 (4.2-5.4); Red Cell Distribution Width 16.2 % (11.5-14.5); White Blood Count 7.2 K/mm3 (4.5-10.0)
[2022-01-17 11:07] LABS: Hemoglobin A1C 5.6 % (<5.7)
[2022-01-17 11:08] LABS: Alanine Aminotransferase 18 U/L (6-35); Alkaline Phosphatase 66 U/L (38-126); Anion Gap 8 mmol/L (8-16); Aspartate Amino Transferase 24 U/L (14-36); Bilirubin,Total 0.5 mg/dL (0.2-1.3); Blood Urea Nitrogen 15 mg/dL (7-17); Calcium 9.2 mg/dL (8.4-10.2); Carbon Dioxide 29 mmol/L (22-30); Chloride 100 mmol/L (98-107); Cholesterol 152 mg/dL (0-200); Estimated Glomerular Filt Rate 45; Glucose 78 mg/dL (65-110); HDL Direct 58 mg/dL; Potassium 4.7 mmol/L (3.4-5.0); Sodium 137 mmol/L (137-145); Triglycerides 149 mg/dL (<150)
[2022-01-17 11:19] LABS: LDL Cholesterol Direct 45 mg/dL
[2022-01-17 11:37] LABS: Thyroid Stimulating Hormone 0.381 uIU/mL (0.465-4.680)
[2022-01-17 12:06] LABS: Appearance Urine Slightly Cloudy (Clear); Bilirubin Urine Negative (Negative); Blood Urine Negative (Negative); Color Urine Yellow (Yellow); Glucose Urine UA Negative (Negative); Ketones Urine Negative (Negative); Leukocyte Esterase Ur Trace LEU/UL (NEGATIVE); Nitrate Urine Negative (Negative); Protein Urine 1+ mg/dL (Negative); Specific Grav Ur 1.015 (1.001-1.035); Urobilinogen Urine 0.2 mg/dL (<2.0); pH Urine 6.5 (5.0-9.0)
[2022-01-17 12:13] LABS: Bacteria Urine Trace /hpf; Mucus Urine Rare /lpf; Squamous Epithelial Cell Urine Many /hpf (Few); WBC Urine 0-3 /hpf (0-3)
[2022-01-17 12:17] LABS: Add Urine Microscopic? YES
== END 2022-01-17 10:31 | disposition home or self-care (01) ==
PROVIDERS: PCP Family Medicine; Visit Provider Family Medicine
DX: H43.811 Vitreous degeneration, right eye (principal); I10 Essential (primary) hypertension; E78.5 Hyperlipidemia, unspecified; R53.83 Other fatigue; R73.01 Impaired fasting glucose
CPT/HCPCS: 36415; 80053; 80061; 81001; 83036; 84443; 85027

== ENCOUNTER 2022-10-03 02:23 | Day surgery (SDC) | payer MEDICARE, OTHER, SELFPAY ==
[2022-09-20 14:13] VITALS: BMI 35.1
--- NOTE | 2022-10-02 16:49 | PM.HPGS ---
History of Present Illness History of Present Illness Consent: Risks, benefits, and alternatives have been discussed and questions answered. Patient agrees to proceed with procedure. Chief complaint: dysphagia Narrative: Leslee Cervantes is a 67 year old female with ?a long history of acid reflux.? She had been on Nexium for a long time which helped her significantly.? Now she can only get pantoprazole through her coverage.? It does not seem to work as well.? She finds herself taking a lot of Tums.? She has dysphagia now which she has had in the past.? Recently, every meal she feels food is going down slowly or hanging up. 6-7 years ago she had esophageal dilatation for that. Biopsies at that time were negative for EOE PMFSH Past Medical History Medical History Acquired hypothyroidism Cervical spinal stenosis Chronic GERD Chronic narcotic use Chronic obstructive pulmonary disease Dehydration Fibromyalgia HTN (hypertension) Hyperlipidemia Hypertension Major depression, chronic HALLE (obstructive sleep apnea) Overactive bladder Personal history of nicotine dependence Pulmonary nodules Surgical History Surgical History History of unilateral oophorectomy Hx of thumb surgery L x 3 due to infx Status post carpal tunnel release Status post cataract extraction Status post hernia repair Status post hysterectomy Status post vein stripping Family History Family History Mother Acute myocardial infarction, Onset Age: 83 Family history of Alzheimer's disease Family history of schizophrenia Father Acute myocardial infarction, Onset Age: 75 Sibling Heart disease Multiple sclerosis Blood clotting tendency Social History Social History Social History: Surrogate decision maker: Radu Cervantes, spouse. CODE STATUS: Full code. Smoking packs per day: 2 Smoking cigarettes per day: 40.0 Years smoked: 35 Smoking pack-years: 70.00 Smoking status: Former smoker Tobacco type: cigarettes Second hand tobacco smoke exposure: Yes Smoking end date: 01/01/09 Alcohol intake: never Alcohol use details: rare Substance use: never Substance use type: does not use Living arrangements: with family Occupation/Education: retired Spiritual care concerns: No Meds Home Medications and Allergies Home Medications Medication Instructions Recorded Confirmed Type pregabalin 150 mg capsule (Lyrica) 150 mg PO TID #270 caps 06/29/20 09/20/22 Rx tramadol 50 mg tablet 50 mg PO Q6H PRN pain #60 tabs 06/29/20 09/20/22 Rx omega-3 fatty acids 1,000 mg PO DAILY 10/21/21 09/20/22 History tizanidine 4 mg tablet 4 mg PO HS 10/21/21 09/20/22 History albuterol sulfate 90 mcg/actuation 1 puff inhalation Q4H PRN 12/12/21 09/20/22 Rx aerosol inhaler (ProAir HFA) cough/wheezing #25.5 grams valacyclovir 500 mg tablet 500 mg PO DAILY #90 tabs 01/16/22 09/20/22 Rx (Valtrex) pantoprazole 40 mg tablet,delayed 40 mg PO QAM #90 tabs 01/29/22 09/20/22 Rx release fluticasone fur. 200 mcg-umeclid 1 inh inhalation DAILY #180 ea 02/12/22 09/20/22 Rx 62.5 mcg-vilant 25 mcg inhalat.powder (Trelegy Ellipta) loperamide 2 mg capsule 2 mg PO DAILY PRN Diarrhea #180 03/23/22 09/20/22 Rx caps meloxicam 15 mg tablet 15 mg PO DAILY #90 tabs 05/31/22 09/20/22 Rx Synthroid 100 mcg tablet 100 mcg PO DAILY #90 tabs 06/14/22 09/20/22 Rx (levothyroxine) rosuvastatin 20 mg tablet (Crestor) 20 mg PO DAILY #90 tabs 06/14/22 09/20/22 Rx mirabegron 50 mg tablet,extended 50 mg PO DAILY #90 tabs 07/05/22 09/20/22 Rx release 24 hr (Myrbetriq) amlodipine 5 mg tablet 5 mg PO DAILY #90 tabs 07/26/22 09/20/22 Rx lisinopril 40 mg tablet 40 mg PO DAILY #90 tabs 08/16/22 09/20/22 Rx fluoxetine 60 mg tablet 60 mg PO DAILY #90 tabs 0
--- NOTE | 2022-10-03 07:36 | WPDANESEPPF ---
Anes - Initial Pre Proc Eval Procedure: Operation Date: 10/03/22 10:15 Proposed Procedures p Esophagogastroduodenoscopy - Diego Ann MD Date/Time: 10/03/22 07:36 Surgeon: Diego Ann MD Pre Op Diagnosis: dysphagia Patient Data Age: 67 Gender: F Height: 1.6 m Weight: 90 kg Allergies Allergy/AdvReac Type Severity Reaction Status Date / Time codeine AdvReac Nausea and Verified 10/03/22 08:51 Vomiting Home Medications Medication Instructions Recorded Confirmed Type pregabalin 150 mg capsule (Lyrica) 150 mg PO TID #270 caps 06/29/20 09/20/22 Rx tramadol 50 mg tablet 50 mg PO Q6H PRN pain #60 tabs 06/29/20 09/20/22 Rx omega-3 fatty acids 1,000 mg PO DAILY 10/21/21 09/20/22 History tizanidine 4 mg tablet 4 mg PO HS 10/21/21 09/20/22 History albuterol sulfate 90 mcg/actuation 1 puff inhalation Q4H PRN 12/12/21 09/20/22 Rx aerosol inhaler (ProAir HFA) cough/wheezing #25.5 grams valacyclovir 500 mg tablet 500 mg PO DAILY #90 tabs 01/16/22 09/20/22 Rx (Valtrex) pantoprazole 40 mg tablet,delayed 40 mg PO QAM #90 tabs 01/29/22 09/20/22 Rx release fluticasone fur. 200 mcg-umeclid 1 inh inhalation DAILY #180 ea 02/12/22 09/20/22 Rx 62.5 mcg-vilant 25 mcg inhalat.powder (Trelegy Ellipta) loperamide 2 mg capsule 2 mg PO DAILY PRN Diarrhea #180 03/23/22 09/20/22 Rx caps meloxicam 15 mg tablet 15 mg PO DAILY #90 tabs 05/31/22 09/20/22 Rx Synthroid 100 mcg tablet 100 mcg PO DAILY #90 tabs 06/14/22 09/20/22 Rx (levothyroxine) rosuvastatin 20 mg tablet (Crestor) 20 mg PO DAILY #90 tabs 06/14/22 09/20/22 Rx mirabegron 50 mg tablet,extended 50 mg PO DAILY #90 tabs 07/05/22 09/20/22 Rx release 24 hr (Myrbetriq) amlodipine 5 mg tablet 5 mg PO DAILY #90 tabs 07/26/22 09/20/22 Rx lisinopril 40 mg tablet 40 mg PO DAILY #90 tabs 08/16/22 09/20/22 Rx fluoxetine 60 mg tablet 60 mg PO DAILY #90 tabs 09/12/22 09/20/22 Rx aspirin 81 mg tablet 81 mg PO DAILY 09/20/22 09/20/22 History Patient hx anesthesia problems: none Family hx anesthesia problems: none Results Review: All pre-operative results and documents have been reviewed as part of the pre-operative evaluation. [facility] Past Medical History Medical History (Updated 10/03/22 @ 07:38 by Blade Moscoso MD) Acquired hypothyroidism Cervical spinal stenosis Chronic GERD Chronic narcotic use Chronic obstructive pulmonary disease Dehydration Fibromyalgia HTN (hypertension) Hyperlipidemia Hypertension Major depression, chronic HALLE (obstructive sleep apnea) Overactive bladder Personal history of nicotine dependence Pulmonary nodules Surgical History Surgical History History of unilateral oophorectomy Hx of thumb surgery L x 3 due to infx Status post carpal tunnel release Status post cataract extraction Status post hernia repair Status post hysterectomy Status post vein stripping Family History Family History Mother Acute myocardial infarction, Onset Age: 83 Family history of Alzheimer's disease Family history of schizophrenia Father Acute myocardial infarction, Onset Age: 75 Sibling Heart disease Multiple sclerosis Blood clotting tendency Social History Social History Social History: Surrogate decision maker: Radu Cervantes, spouse. CODE STATUS: Full code. Smoking packs per day: 2 Smoking cigarettes per day: 40.0 Years smoked: 35 Smoking pack-years: 70.00 Smoking status: Former smoker Tobacco type: cigarettes Second hand tobacco smoke exposure: Yes Smoking end date: 01/01/09 Alcohol intake: never Alcohol use details: rare Substance use: never Substance use type: does not use Living arrangements: with family Occupation/Education: retired Spiritual care concerns: No Anes - Eval Final PreProcedure Day of Pro
[2022-10-03 08:52] VITALS: BP 132/94; PULSE 88; RESP 18; TEMP 36.3; O2SAT 94
[2022-10-03] MEDS: LACTATED RINGERS 1,000 ML 150 ML IV CONT (09:04)
[2022-10-03 09:35] VITALS: BP 110/62; PULSE 80; RESP 14; O2SAT 97
[2022-10-03 09:45] VITALS: BP 118/70; PULSE 81; RESP 15; O2SAT 97
[2022-10-03 09:55] VITALS: BP 117/64; PULSE 72; RESP 16; O2SAT 99
== END 2022-10-03 10:08 | disposition home or self-care (01) ==
PROVIDERS: PCP Family Medicine; Visit Provider Internal Medicine Gastroenterology
PROC: 0DJ08ZZ Inspection of Upper Intestinal Tract, Via Natural or Artificial Opening Endoscopic (ICD-10-PCS; CPT 43235; principal; 2022-10-03 10:15)
DX: K22.2 Esophageal obstruction (principal); K21.9 Gastro-esophageal reflux disease without esophagitis; I10 Essential (primary) hypertension; E78.5 Hyperlipidemia, unspecified; G47.33 Obstructive sleep apnea (adult) (pediatric); M79.7 Fibromyalgia; J44.9 Chronic obstructive pulmonary disease, unspecified; E03.9 Hypothyroidism, unspecified; Z87.891 Personal history of nicotine dependence; E66.9 Obesity, unspecified; Z68.36 Body mass index [BMI] 36.0-36.9, adult; Z79.82 Long term (current) use of aspirin; Z79.51 Long term (current) use of inhaled steroids
CPT/HCPCS: 43249; C1726; J2704; J7120

== ENCOUNTER 2022-10-22 13:54 | Outpatient (CLI) | payer MEDICARE, OTHER, SELFPAY ==
--- NOTE | ~2022-10-22 | CT_ITS ---
EXAMINATION: CT lung screening DATE: 10/22/2022 14:27 INDICATION: Personal history of tobacco dependence TECHNIQUE: Computed tomography (CT) of the chest was performed without intravenous contrast. The dose -length product was 222.48 mGy-cm. Automated exposure control and iterative reconstruction technique were employed. COMPARISON: CT dated 10/21/2021 FINDINGS: There is fatty infiltration of the pancreas. There are small hypodense lesions of the kidne ys, too small to characterize without contrast, most likely benign. No significant pleural or pericar dial effusion. No thoracic lymphadenopathy. There is emphysema. There is apical pleural thickening/sc arring. There is a calcified granuloma in the right upper thorax adjacent to the mediastinum measurin g 1.4 cm. There is a 3 mm right lower lobe nodule, image 69. There are a few small upper lobe nodules measuring 2 mm or less. There are small fissural nodules measuring 2 mm or less on the right. There is lingular atelectasis/scarring. There is a 3 mm right lower lobe nodule, image 82. Moderate thoraci c and upper lumbar spondylosis. IMPRESSION: 1. Lung-RADS category 2: Benign appearance or behavior. Continue annual screening with noncontrast lo w-dose chest CT in 12 months. Reviewed, dictated and finalized at location [facility]. IMPRESSION: 1. Lung-RADS category 2: Benign appearance or behavior. Continue annual screeni ng with noncontrast low-dose chest CT in 12 months.
== END 2022-10-22 13:55 | disposition home or self-care (01) ==
PROVIDERS: PCP Family Medicine; Visit Provider Physician Assistant
DX: Z12.2 Encounter for screening for malignant neoplasm of respiratory organs (principal); Z87.891 Personal history of nicotine dependence
CPT/HCPCS: 71271

== ENCOUNTER 2023-02-01 11:32 | Outpatient (CLI) | payer MEDICARE, OTHER, SELFPAY ==
[2023-02-01 12:42] LABS: Hematocrit 33.3 % (37.0-47.0); Hemoglobin 10.2 g/dL (12.0-15.0); Mean Corpuscular HGB Conc 30.6 g/dl (32-36); Mean Corpuscular Hemoglobin 28.3 pg (26-34); Mean Corpuscular Volume 92.5 fl (80-100); Mean Platelet Volume 10.2 fl (7.4-10.4); Platelet Count Result 254 k/mm3 (150-375); Red Cell Distribution Width 16.1 % (11.5-14.5); White Blood Count 7.4 K/mm3 (4.5-10.0)
[2023-02-01 12:53] LABS: Alanine Aminotransferase 22 U/L (6-35); Albumin Level 3.8 g/dL (3.5-5.1); Alkaline Phosphatase 67 U/L (38-126); Anion Gap 6 mmol/L (8-16); Aspartate Amino Transferase 28 U/L (14-36); Bilirubin,Total 0.4 mg/dL (0.2-1.3); Blood Urea Nitrogen 23 mg/dL (7-17); Calcium 8.9 mg/dL (8.4-10.2); Carbon Dioxide 29 mmol/L (22-30); Chloride 102 mmol/L (98-107); Cholesterol 149 mg/dL (0-200); Estimated Glomerular Filt Rate 41; Glucose 85 mg/dL (65-110); HDL Direct 64 mg/dL; Potassium 4.8 mmol/L (3.4-5.0); Sodium 137 mmol/L (137-145); Triglycerides 110 mg/dL (<150)
[2023-02-01 13:05] LABS: LDL Cholesterol Direct 59 mg/dL
[2023-02-01 13:22] LABS: Thyroid Stimulating Hormone 0.046 uIU/mL (0.465-4.680)
[2023-02-01 13:43] LABS: Hemoglobin A1C 5.5 % (<5.7)
[2023-02-01 15:58] LABS: Appearance Urine Cloudy (Clear); Bacteria Urine None Seen /hpf; Bilirubin Urine Negative (Negative); Blood Urine Negative (Negative); Color Urine Yellow (Yellow); Cystine Crystals Urine Present /hpf; Glucose Urine UA Negative (Negative); Ketones Urine Negative (Negative); Leukocyte Esterase Ur Trace LEU/UL (NEGATIVE); Need Manual Microscopic Reviewed; Nitrate Urine Negative (Negative); Protein Urine Negative (Negative); Specific Grav Ur 1.012 (1.001-1.035); Squamous Epithelial Cell Urine None seen /hpf (Few); Urobilinogen Urine 0.2 mg/dL (<2.0); WBC Urine 0-5 /hpf (0-3)
[2023-02-01 16:00] LABS: Add Urine Microscopic? YES
== END 2023-02-01 11:33 | disposition home or self-care (01) ==
PROVIDERS: PCP Family Medicine; Visit Provider Family Medicine
DX: E03.9 Hypothyroidism, unspecified (principal); E78.5 Hyperlipidemia, unspecified; I10 Essential (primary) hypertension; R73.01 Impaired fasting glucose; Z00.00 Encounter for general adult medical examination without abnormal findings; H43.811 Vitreous degeneration, right eye
CPT/HCPCS: 36415; 80053; 80061; 81001; 83036; 84443; 85027

== ENCOUNTER 2023-02-27 13:50 | Outpatient (CLI) | payer MEDICARE, OTHER, SELFPAY ==
[2023-02-27 15:37] LABS: Iron 36 ug/dL (37-170)
[2023-02-27 15:47] LABS: Percent Iron Saturation 9 % (20-50)
== END 2023-02-27 13:51 | disposition home or self-care (01) ==
PROVIDERS: PCP Family Medicine; Visit Provider Family Medicine
DX: U07.1 COVID-19 (principal); D64.9 Anemia, unspecified
CPT/HCPCS: 36415; 82728; 83540; 83550

== ENCOUNTER 2023-08-14 13:55 | Outpatient (CLI) | payer MEDICARE, OTHER, SELFPAY ==
[2023-08-14 14:54] LABS: Hemoglobin 11.6 g/dL (12.0-15.0); Mean Corpuscular HGB Conc 31.4 g/dl (32-36); Mean Corpuscular Volume 98.9 fl (80-100); Mean Platelet Volume 10.3 fl (7.4-10.4); Platelet Count Result 206 k/mm3 (150-375); Red Blood Count 3.74 M/mm3 (4.2-5.4); Red Cell Distribution Width 14.8 % (11.5-14.5); White Blood Count 8.5 K/mm3 (4.5-10.0)
[2023-08-14 15:05] LABS: Alanine Aminotransferase 21 U/L (6-35); Albumin Level 3.9 g/dL (3.5-5.1); Alkaline Phosphatase 74 U/L (38-126); Anion Gap 5 mmol/L (8-16); Aspartate Amino Transferase 24 U/L (14-36); Bilirubin,Total 0.6 mg/dL (0.2-1.3); Blood Urea Nitrogen 21 mg/dL (7-17); Calcium 9.4 mg/dL (8.4-10.2); Carbon Dioxide 29 mmol/L (22-30); Chloride 102 mmol/L (98-107); Estimated Glomerular Filt Rate 40; Glucose 84 mg/dL (65-110); Potassium 4.5 mmol/L (3.4-5.0); Sodium 136 mmol/L (137-145)
[2023-08-14 15:35] LABS: Thyroid Stimulating Hormone 0.068 uIU/mL (0.465-4.680)
== END 2023-08-14 13:56 | disposition home or self-care (01) ==
LOC: ANHLAB 13:58
PROVIDERS: PCP Family Medicine; Visit Provider Family Medicine
DX: E03.9 Hypothyroidism, unspecified (principal); I12.9 Hypertensive chronic kidney disease with stage 1 through stage 4 chronic kidney disease, or unspecified chronic kidney disease; N18.30 Chronic kidney disease, stage 3 unspecified; D64.9 Anemia, unspecified
CPT/HCPCS: 36415; 80053; 84443; 85027

== ENCOUNTER 2023-10-24 09:55 | Outpatient (CLI) | payer MEDICARE, OTHER, SELFPAY ==
--- NOTE | ~2023-10-24 | CT_ITS ---
EXAMINATION: CT lung screening DATE: 10/24/2023 10:35 INDICATION: Former smoker. Shortness of breath. History of COPD. TECHNIQUE: Computed tomography (CT) of the chest was performed without intravenous contrast. Automate d exposure control and iterative reconstruction technique were employed. Exam dose: 228.55 mGy-cm to rebecca exam DLP. COMPARISON: 10/21/2021 portable AP chest 05/07/2016 CT chest FINDINGS: Moderate emphysematous changes of the lungs. Mild bilateral apical scarring. Focal discoid atelectasis or scarring in the posteromedial left lung base, left lower lobe. Stable juxtapleural 3 mm right lower lobe pulmonary nodule, not changed since 2015, consistent with benign nodule. No pulmonary infiltrate or consolidation or pulmonary mass lesion is noted otherwise. No hilar or mediastinal mass lesion or lymphadenopathy. No thoracic aortic aneurysm. Coronary, aortic and great vessel atherosclerotic calcifications. No hilar or mediastinal mass lesion or lymphadenopathy. Small sliding hiatal hernia. Normal morphology of the adrenal glands. Atrophy/fatty replacement of the pancreas. Moderately prominent burst fracture deformity of L1. Prominent degenerative disc disease of lower cervical spine and at T12-L1 and especially L1-2. IMPRESSION: Lung-RADS 2 Benign Recommendation: [address] follow-up Reviewed, dictated and finalized at [facility]. Reviewed, dictated and finalized at location B.
== END 2023-10-24 09:56 | disposition home or self-care (01) ==
PROVIDERS: PCP Family Medicine; Visit Provider Physician Assistant
DX: Z12.2 Encounter for screening for malignant neoplasm of respiratory organs (principal); Z87.891 Personal history of nicotine dependence
CPT/HCPCS: 71271

== ENCOUNTER 2023-11-24 08:21 | Outpatient (CLI) | payer MEDICARE, OTHER, SELFPAY ==
--- NOTE | ~2023-11-24 | MR_ITS ---
EXAMINATION: MR lumbar spine wo con DATE: 11/24/2023 09:02 INDICATION: Stable burst fracture of unspecified lumbar vertebra. Back pain. TECHNIQUE: Magnetic resonance imaging (MRI) of the lumbar spine was performed without intravenous con trast. Sequences included sagittal T2-weighted FSE, sagittal T2-weighted FS FSE, sagittal T1-weighted FSE, and axial T2-weighted FSE. COMPARISON: Chest CT 10/24/2023 FINDINGS: There is 11 degrees levoscoliosis of lumbar spine. There is 3 mm anterolisthesis of L4 on L 5 and 5 mm anterolisthesis of L5 on S1. There is a compression fracture of inferior endplate of T12 w ith less than 1/5 loss of height and edema-like marrow signal intensity. There is a burst fracture of L1 with 3/5 loss of height, retropulsion of bone 5 mm into central spinal canal, and edema-like andrew ow signal intensity. There is severely decreased disc height at L1-L2, mildly decreased disc height a t L2-L3, severely decreased disc height at L3-L4, and mildly decreased disc height at L4-L5 and L5-S1 . The distal spinal cord signal intensity is normal. The conus medullaris is at L1. The following dis c levels are specifically discussed: T12-L1: The disc does not extend beyond the endplate margin. There is severe bilateral facet joint os teoarthritis. There is mild bilateral neural foraminal stenosis. There is mild central canal stenosis . L1-L2: The disc is bulging. There is mild bilateral facet joint osteoarthritis. There is moderate and mild left neural foraminal stenosis. There is mild central canal stenosis. L2-L3: The disc is bulging. There is moderate right and severe left facet joint osteoarthritis. There is mild bilateral neural foraminal stenosis. There is mild central canal stenosis. L3-L4: The disc is bulging. There is severe bilateral facet joint osteoarthritis. There is moderate b ilateral neural foraminal stenosis. There is mild central canal stenosis. L4-L5: The disc is bulging. There is severe bilateral facet joint osteoarthritis. There is mild bilat eral neural foraminal stenosis. There is no central canal stenosis. L5-S1: The disc is bulging. There is severe bilateral facet joint osteoarthritis. There is mild bilat eral neural foraminal stenosis. There is mild central canal stenosis. IMPRESSION: 1. Acute T12 compression fracture, new from 10/24/2023. 2. Subacute L1 burst fracture, worsened from 10/24/2023. 3. Severe lumbar spondylosis. 4. Lumbar levoscoliosis. Reviewed, dictated and finalized at location E.
== END 2023-11-24 08:22 | disposition home or self-care (01) ==
PROVIDERS: PCP Family Medicine; Visit Provider Family Medicine
DX: S32.011A Stable burst fracture of first lumbar vertebra, initial encounter for closed fracture (principal); M43.06 Spondylolysis, lumbar region; M41.86 Other forms of scoliosis, lumbar region; G89.29 Other chronic pain; X58.XXXA Exposure to other specified factors, initial encounter
CPT/HCPCS: 72148

== ENCOUNTER 2024-02-24 10:50 | Outpatient (CLI) | payer MEDICARE, OTHER, SELFPAY ==
[2024-02-24 11:45] LABS: Hematocrit 37.4 % (37.0-47.0); Hemoglobin 12.3 g/dL (12.0-15.0); Mean Corpuscular HGB Conc 32.9 g/dl (32-36); Mean Corpuscular Hemoglobin 32.9 pg (26-34); Mean Platelet Volume 10.4 fl (7.4-10.4); Platelet Count Result 181 k/mm3 (150-375); Red Blood Count 3.74 M/mm3 (4.2-5.4); Red Cell Distribution Width 13.8 % (11.5-14.5); White Blood Count 6.4 K/mm3 (4.5-10.0)
[2024-02-24 11:51] LABS: Add Urine Microscopic? YES; Appearance Urine Cloudy (Clear); Bacteria Urine None Seen /hpf; Bilirubin Urine Negative (Negative); Blood Urine Negative (Negative); Color Urine Dark Yellow (Yellow); Glucose Urine UA Negative (Negative); Ketones Urine Negative (Negative); Leukocyte Esterase Ur Negative LEU/UL (Negative); Need Manual Microscopic Reviewed; Nitrate Urine Negative (Negative); Protein Urine Trace mg/dL (Negative); Specific Grav Ur 1.017 (1.001-1.035); Squamous Epithelial Cell Urine Few /hpf (Few); WBC Urine 0-5 /hpf (0-3); pH Urine 6.5 (5.0-9.0)
[2024-02-24 12:10] LABS: Alanine Aminotransferase 20 U/L (6-35); Albumin Level 3.9 g/dL (3.5-5.1); Alkaline Phosphatase 67 U/L (38-126); Anion Gap 7 mmol/L (4-12); Aspartate Amino Transferase 26 U/L (14-36); Bilirubin,Total 0.5 mg/dL (0.2-1.3); Blood Urea Nitrogen 21 mg/dL (7-17); Calcium 9.2 mg/dL (8.4-10.2); Carbon Dioxide 26 mmol/L (22-30); Chloride 103 mmol/L (98-107); Cholesterol 135 mg/dL (0-200); Estimated Glomerular Filt Rate 44; Glucose 74 mg/dL (65-110); HDL Direct 62 mg/dL; Potassium 4.1 mmol/L (3.4-5.0); Sodium 136 mmol/L (137-145); Triglycerides 125 mg/dL (<150)
[2024-02-24 12:16] LABS: LDL Cholesterol Direct 45 mg/dL
[2024-02-24 12:34] LABS: Thyroid Stimulating Hormone 0.022 uIU/mL (0.465-4.680)
[2024-02-24 12:36] LABS: Hemoglobin A1C 5.6 % (<5.7)
== END 2024-02-24 10:51 | disposition home or self-care (01) ==
PROVIDERS: PCP Family Medicine; Visit Provider Family Medicine
DX: E03.9 Hypothyroidism, unspecified (principal); E78.5 Hyperlipidemia, unspecified; R73.01 Impaired fasting glucose; H43.811 Vitreous degeneration, right eye; I12.9 Hypertensive chronic kidney disease with stage 1 through stage 4 chronic kidney disease, or unspecified chronic kidney disease; N18.30 Chronic kidney disease, stage 3 unspecified
CPT/HCPCS: 36415; 80053; 80061; 81001; 83036; 84443; 85027

== ENCOUNTER 2024-08-04 11:57 | Outpatient (CLI) | payer MEDICARE, OTHER, SELFPAY ==
[2024-08-04 12:51] LABS: Alanine Aminotransferase 29 U/L (6-35); Aspartate Amino Transferase 37 U/L (14-36)
== END 2024-08-04 11:58 | disposition home or self-care (01) ==
PROVIDERS: PCP Family Medicine; Visit Provider Podiatrist Foot & Ankle Surgery
DX: B35.1 Tinea unguium (principal)
CPT/HCPCS: 36415; 84450; 84460

== ENCOUNTER 2024-09-08 12:25 | Outpatient (CLI) | payer MEDICARE, OTHER, SELFPAY ==
[2024-09-08 13:17] LABS: Anion Gap 8 mmol/L (4-12); Blood Urea Nitrogen 26 mg/dL (7-17); Calcium 8.8 mg/dL (8.4-10.2); Carbon Dioxide 26 mmol/L (22-30); Chloride 102 mmol/L (98-107); Estimated Glomerular Filt Rate 34; Glucose 80 mg/dL (65-110); Potassium 4.5 mmol/L (3.4-5.0); Sodium 136 mmol/L (137-145)
--- OUTSIDE RECORDS SUMMARY | 2024-09-08 13:31 | XMS_ITS | Encounter Summary ---
Author Organization [facility] Address 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
--- OUTSIDE RECORDS SUMMARY | 2024-09-08 13:31 | XMS_ITS | Encounter Summary ---
Author Organization [facility] Address 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
--- OUTSIDE RECORDS SUMMARY | 2024-09-08 13:31 | XMS_ITS | Clinical Summary ---
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 Gender Identity Not on file Sexual Orientation Not on file Plan of Treatment Health Maintenance Due Date Last Done Comments DTAP/TDAP/TD VACCINES (1 - Tdap) 02/12/1972 COLORECTAL SCREENING 1998 Colorectal Cancer Screening 1998 FIT-DNA Q 3 years 1998 FIT/FOBT Q 1 year 1998 Flex Sig/CT Colonography Q 5 years 1998 PNEUMOCOCCAL VACCINE 50+ YEARS (1 of 1 - PCV) 02/12/20 03 ZOSTER VACCINE (1 of 2) 2003 BREAST CANCER SCREENING 09/09/2008 09/10/2007 OSTEOPOROSIS SCREENING 2018 INFLUENZA VACCINE (#1) 2024 RSV VACCINE (60+ or ) (1 - 1-dose 75+ series) 02/12/2028 Procedures Procedure Name Priority Date/Time Associated Diagnosis Comments MAMMO SCREENING BILAT Routine 09/10/2007 3:11 PM CDT from Last 3 Months or Most Recently Relevant to Health Maintenance Results * MAMMO SCREENING BILAT (09/10/2007 3:11 PM CDT) Anatomical Region Laterality Modality Breast Bilateral Other 09/10/2007 3:11 PM CDT Narrative 09/11/2007 3:23 PM CDT [facility] [address] [place], [place] [address] Admit Date: 09/10/2007 RENATA HILL Sex: F Admit Prov: JUAN CASEY Date: 1955 Primary Care Prov: CMRN: [id number] Room: [facility]: [id number] IMAGING SERVICES Ordering Prov: JUAN CASEY Accession Number: [id number] Interpretation Bilateral screening mammograms 09/10/2007 Reason for this examination: Annual screening study The parenchyma is dense bilaterally. This lowers the sensitivity of mammography in detecting disease. There are no abnormalities on the right. There is asymmetrically dense tissue with distortion deep in the central left breast. The appearance has changed since the prior mammograms. The findings may be related to a summation shadow or true developing lesion. Conclusion: Possible new lesion on the left Recommendations: Diagnostic left mammogram and left breast sonogram are recommended for more complete evaluation. This patient would also benefit from a new 3D automated whole breast ultrasound exam which is now available at the breast center. Assessment BIRADS: 0-Incomplete: Need additional imaging evaluation Recommendation: Additional projections Ultrasound Dictated by: NADEEM HANSON Electronically signed by: NADEEM HANSON 09/11/2007 15:23 Transcribed: 09/11/2007 13:53 AMK Procedure Note Nadeem Hanson MD - 09/11/2007 [place] [address] [place], [place] [address] Admit Date: 09/10/2007 SERGIO RENATA Dano Sex: F Admit Prov: JUAN CASEY Date: 1955 Primary Care Prov: CMRN: [id number] Room: [facility]: [id number] IMAGING SERVICES Ordering Prov: JUAN CASEY Interpretation Bilateral screening mammograms 09/10/2007 Reason for this examination: Annual screening study The parenchyma is dense bilaterally. This lowers the sensitivity of mammography in detecting disease. There are no abnormalities on theright. There is asymmetrically dense tissue with distortion deep in thecentral left breast. The appearance has changed since the prior mammograms.The findings may be related to a summation shadow or true developinglesion. Conclusion: Possible new lesion on the left Recommendations: Diagnostic left mammogram and left breast sonogramare recommended for more complete evaluation. This patient would also benefit from a new 3D automated wholebreast ultrasound exam which is now available at the breast center. Assessment BIRADS: 0-Incomplete: Need additional imagingevaluation Recommendation: Additional projections Ultrasound Dictated by: NADEEM HANSON Electronically signed by: NADEEM HANSON 09/11/2007 15:23 Transcribed: 09/11/2007 13:53 AMK us Juan Casey MD MAMMO ORDERABLES Final Result from Last 3 Months or Most Recently Relevant to Health Maintenance
--- OUTSIDE RECORDS SUMMARY | 2024-09-08 13:31 | XMS_ITS | Encounter Summary ---
Author Organization [facility] Address 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
--- OUTSIDE RECORDS SUMMARY | 2024-09-08 13:31 | XMS_ITS | Clinical Summary ---
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 3 Active Shawnee-3 Fatty Acids (FISH OIL TRIPLE STRENGTH) 1400 MG Cap Take 1 tablet by mouth daily. 3 Active valACYclovir (VALTREX) 500 MG tablet 5 Active traMADol (ULTRAM) 50 MG tablet Take 1 tablet (50 mg total) by mouth every 6 (six) hours as needed. 4 Active tiZANidine (ZANAFLEX) 4 MG tablet Take 1 tablet (4 mg total) by mouth daily. 6 Active rosuvastatin (CRESTOR) 20 MG tablet Take 1 tablet (20 mg total) by mouth daily. 3 Active LYRICA 150 MG capsule Take 1 capsule (150 mg total) by mouth 3 (three) times daily. 2 Active potassium chloride CR (MICRO-K) 10 MEQ CR capsule Potassium Chloride ER 10 MEQ Oral Capsule Extended ReleaseTAKE 1 C PO [id number] siobhan 8 Active pimecrolimus (ELIDEL) 1 % cream Apply topically 2 (two) times daily. 5 Active pantoprazole EC (PROTONIX) 40 MG tablet 4 Active omeprazole (PRILOSEC) 40 MG capsule Take 1 capsule (40 mg total) by mouth daily. 7 Active Daily Multiple Vitamins Tab Take 1 tablet by mouth daily. 3 Active Misc Natural Products (GLUCOSAMINE-CH ONDROITIN DS) Tab Take 1 tablet by mouth daily. 8 Active MYRBETRIQ 50 MG 24 hr tablet Take 1 tablet (50 mg total) by mouth daily. 6 Active meloxicam (MOBIC) 15 MG tablet Take 1 tablet (15 mg total) by mouth daily. 3 Active Magnesium Oxide 400 MG Cap Take 1 tablet by mouth 2 (two) times daily. 3 Active loperamide (IMODIUM) 2 MG capsule Take 2 capsules (4 mg total) by mouth daily. 7 Active lisinopril (PRINIVIL) 20 MG tablet 5 Active SYNTHROID 100 MCG tablet Take 1 tablet (100 mcg total) by mouth daily. 2 Active TRELEGY ELLIPTA 200-62.5-25 MCG/ACT AEROSOL POWDER, BREATH ACTIVATED 4 Active FLUoxetine (PROZAC) 20 MG capsule 4 Active fesoterodine ER (TOVIAZ) 8 MG 24 hr tablet Take 1 tablet (8 mg total) by mouth daily. 3 Active conjugated estrogens (PREMARIN) 0.625 MG/GM vaginal cream Premarin (conjugated estrogens) cream 0.625 mg/gram; insert 1 applicator 2 times a week; 0; -Mar-2013; Active 3 Active esomeprazole (NEXIUM) 40 MG capsule Take 1 tablet by mouth daily. 3 Active CALCIUM OR Take 1 tablet by mouth daily. 3 Active amLODIPine (NORVASC) 5 MG tablet 4 Active albuterol sulfate HFA (PROAIR HFA) 108 (90 Base) MCG/ACT inhaler Inhale 1-2 puffs into the lungs. 6 Active Active Problems No known active problems Encounters Date Type Department Care Team Description 07/29/2024 2:20 PM LIGHTOUT EXAMINER Office Visit [facility] General Surgery - [address], [address] [place] [phone] Vaughn Koenig MD Postop Followup (PO left breast biopsy 07/13/24) 07/29/2024 Travel 07/13/2024 4:03 PM LIGHTOUT EXAMINER - 07/13/2024 11:59 PM LIGHTOUT EXAMINER Hospital Encounter [facility] [address] [place] [address] Vaughn Koenig MD Discharge Disposition: Home or Self Care (Routine Discharge) 07/13/2024 1:37 PM LIGHTOUT EXAMINER - 07/13/2024 4:02 PM LIGHTOUT EXAMINER Hospital Encounter [facility] [address] [place] [address] Vaughn Koenig MD Discharge Disposition: Home or Self Care (Routine Discharge) 07/13/2024 Travel 07/10/2024 Orders Only [address], [address] [place] [phone] Vaughn Koenig MD 07/08/2024 1:47 PM LIGHTOUT EXAMINER - 07/08/2024 11:59 PM LIGHTOUT EXAMINER Hospital Encounter [facility] [id number] [place] [phone] Vaughn Koenig MD Discharge Disposition: Home or Self Care (Routine Discharge) 07/08/2024 Travel 06/26/2024 Scan HEALTH INFO SRVCS Scanned, [facility] 06/26/2024 Orders Only [address], [address] [place] [phone] Vaughn Koenig MD 06/26/2024 Orders Only [address], [address] [place] [phone] Vaughn Koenig MD 06/24/2024 2:00 PM LIGHTOUT EXAMINER Office Visit [address], [address] [place] [phone] Vaughn Koenig MD Abnormal Mammography (Patient presents for abnormal left breast mammogram. ) 06/24/2024 Travel from Last 3 Months Family History Medical History Relation Comments Breast Cancer Neg Hx Social History Tobacco Use Types Packs/Day Years Used Date Smoking Tobacco: Former Smokeless Tobacco: Never Tobacco Cessation:Counseling Given: No Alcohol Use Standard Drinks/Week Comments Yes 0 (1 standard drink = 0.6 oz pur e alcohol) socially PHQ-2 Answer Date Recorded Patient Health Questionnaire-2 Score 0 07/29/2024 Comments No Sex and Gender Information Value Date Recorded Sex Assigned at Female 07/29/2024 2:28 PM LIGHTOUT EXAMINER Legal Sex Female 5:03 PM CDT Gender Identity Female 07/29/2024 2:28 PM LIGHTOUT EXAMINER Sexual Orientation Not on file Last Filed Vital Signs Vital Sign Reading Time Taken Comments Blood Pressure 122/74 07/29/2024 2:28 PM LIGHTOUT EXAMINER Pulse 94 07/29/2024 2:28 PM LIGHTOUT EXAMINER Temperature 36.3 C (97.4 F) 07/29/2024 2:28 PM LIGHTOUT EXAMINER Respiratory Rate 22 07/29/2024 2:28 PM LIGHTOUT EXAMINER Oxygen Saturation 92% 07/29/2024 2:28 PM LIGHTOUT EXAMINER Inhaled Oxygen Concentration - - Weight 86.2 kg (190 lb) 06/24/2024 1:53 PM LIGHTOUT EXAMINER Height 160 cm (5' 3 ) 08/15/2020 7:42 AM CDT Body Mass Index 33.66 08/15/2020 7:42 AM CDT Plan of Treatment Upcoming Encounters Date Type Department Care Team (Late st Contact Info) Description 01/27/2025 2:20 PM CDT Office Visit [facility] General Surgery [address], [address] [place] [address] Vaughn Koenig MD [address] [address] Health Maintenance Due Date Last Done Comments COVID-19 Vaccine (#1) 1960 Hepatitis C 1971 Colorectal Cancer Screening Colonoscopy (10 Years) 06/03/2010 06/03/2000 RSV Immunization or 60+ Years (1 - Risk 60-74 years 1-dose series) 2013 Annual Medicare Wellness Visit 2018 Pneumococcal Vaccine: 65+ Years (2 of 2 - PPSV23 or PCV20) 04/20/2019 02/23/2019, 03/15/2015 DTaP, Tdap and Td Vaccines (2 - Td or Tdap) 04/02/2022 04/02/2012 Mammogram Screening 07/13/2026 07/13/2024, 05/06/2024, 04/13/2024, Additional history exists Zoster Vaccines Completed 04/24/2019, 02/02, 1955 Dexa Scan (General) Completed 04/13/2024, PHQ-2 (Physician [place]) Completed 07/29/2024 Meningococcal B Vaccine Aged Out No l onger eligible based on patient's age to complete this topic Meningococcal Vaccine Aged Out No rafia andrew eligible based on patient's age to complete this topic RSV Immunizations Under 20 Months Aged Out No longer eligible based on patient's age to complete this topic Procedures Procedure Name Priority Date/Time Associated Diagnosis Comments MG POST PROC LT DIAG MAMMO Routine 07/13/2024 3:25 PM LIGHTOUT EXAMINER Abnormality of left breast on screening mammogram MG TISSUE STUDY LOC LT Routine 07/13/2024 3:19 PM LIGHTOUT EXAMINER Abnormality of left breast on screening mammogram PATHOLOGY Routine 07/13/2024 12:00 AM LIGHTOUT EXAMINER US GD BREAST BX LT BIRAD Routine 07/08/2024 3:40 PM LIGHTOUT EXAMINER Abnormality of left breast on screening mammogram PATHOLOGY Routine 07/08/2024 12:00 AM LIGHTOUT EXAMINER Abnormality of left breast on screening mammogram BONE DENSITY/DEXA Routine 04/13/2024 10: 18 AM LIGHTOUT EXAMINER Asymptomatic menopausal state COLONOSCOPY Routine 06/03/2000 12:00 AM LIGHTOUT EXAMINER from Last 3 Months or Most Recently Relevant to Health Maintenance Results * MG POST PROC LT DIAG MAMMO (07/13/2024 3:25 PM LIGHTOUT EXAMINER) Anatomical Region Laterality Modality Breast Left Mammography 07/14/2024 8:21 AM LIGHTOUT EXAMINER Impressions 07/14/2024 8:31 AM LIGHTOUT EXAMINER IMPRESSION: Post biopsy as described. Correlation with the intraprocedural findings required. Recommendation: 1: Clinical correlation Bilateral Return for Routine Follow-Up: No Assessment: Post procedure mammogram for marker placement. Ordered By: VAUGHN KOENIG Interpreted By: Jackson Bhatti MD, 07/14/2024 8:21 AM Narrative 07/14/2024 8:31 AM LIGHTOUT EXAMINER [address] [address] Examination: Digital left diagnostic mammogram. Clinical history: Postbiopsy. Comparison: 05/06/2024, 04/13/2024 ([facility] Technique:CC and true lateral left digital mammograms . Tissue density: The breast tissue is heterogeneously dense. Findings: The images document stereotactic biopsy of the target calcification near the 11:00 position with adequate positioning of the tissue marker. No postbiopsy hematoma is evident. Correlation with the intraprocedural findings is required. Vaughn Koenig MD MAMMO Final Result * MG TISSUE STUDY LOC LT (07/13/2024 3:19 PM LIGHTOUT EXAMINER) Anatomical Region Laterality Modality Breast Mammography 07/14/2024 8:31 AM LIGHTOUT EXAMINER Impressions 07/14/2024 8:34 AM LIGHTOUT EXAMINER IMPRESSION: Target calcification is present within the specimens submitted. Correlation with the intraprocedural findings required. Ordered By: VAUGHN KOENIG Interpreted By: Jackson Bhatti MD, 07/14/2024 8:31 AM Narrative 07/14/2024 8:34 AM LIGHTOUT EXAMINER [address] [address] Examination: Specimen radiography. Exam time: 1439 hours. Clinical history: Sonographically suspicious mass with associated calcification. Monitoring for stereotactic biopsy. Comparison: Digital mammograms, 05/06/2024, 04/13/2024 ([facility]). Technique: Standard technique. Findings: Images document the target calcification within the specimens submitted. Correlation with the intraprocedural findings required. Procedure Note Jackson Bhatti MD - 07/14/2024 [facility] [address] [place] [address] Examination: Specimen radiography. Exam time: 1439 hours. Clinical history: Sonographically suspicious mass with associatedcalcification. Monitoring for stereotactic biopsy. Comparison: Digital mammograms, 05/06/2024, 04/13/2024 ([facility]). Technique: Standard technique. Findings: Images document the target calcification within the specimenssubmitted. Correlation with the intraprocedural findings required. IMPRESSION: Target calcification is present within the specimens submitted.Correlation with the intraprocedural findings required. Ordered By: VAUGHN KOENIG Interpreted By: Jackson Bhatti MD, 07/14/2024 8:31 AM Vaughn Koenig MD MAMMO Final Result * Pathology (07/13/2024 12:00 AM LIGHTOUT EXAMINER) Only the most recent of2 resultswithin the time period is included. PATHOLOGY [facility] Department of Laboratory Medicine [address] [place] [address] , [email or web address] [id number] Pathology Report Surgical Pathology Report Name: RENATA HILL Specimen #: [id number] Age: 9 1955 (Age: 69) Location: [facility] Sex: F Procedure Date: 07/13/2024 Hospital #: [id number] Date Received: 07/14/2024 Date Reported: 07/15/2024 Provider: VAUGHN KOENIG MD Source: Left breat, slightly medial and inferior aspect, needle biopsies Clinical History: Abnormal mammogram FINAL DIAGNOSIS: Left breast, asymmetry in medial and inferior aspect, core biopsy: -Fat necrosis, organizing hemorrhage, and fibrosis. -Minute focus of fibroadenomatoid change. -Microcalcification s involving scattered benign ducts. -No in situ or invasive carcinoma is identified. Gross Description: Received in formalin, labeled with a patient label and as asymmetric tissue slightly medial and inferior aspect left breast , are multiple needle core biopsies of white-rogel yellow-rogel soft tissue ranging from 0.3 to 3.1 cm in greatest dimension. The specimen is entirely submitted in cassettes 1-3. Please note: The cold ischemia time for this specimen was less than one hour. It was placed in formalin at 1443 on 07/13/2024 for a total time in formalin of 28.5 hours. Gross examination (when applicable), interpretation, and sign out were performed at [facility], [address] [place] [address]. Electronically Signed Out AJ MOLINA MD [facility] 07/13/2024 07/14/2024 2:5 8 PM LIGHTOUT EXAMINER Comment:Left breat, slightly medial and inferior aspect, needle biopsies us Vaughn Koenig MD PATHOLOGY/CYTOLOGY ORDERABLE S Final Result [facility] [address] [place] [address], [id number] * US GD BREAST BX LT BIRAD (07/08/2024 3:40 PM LIGHTOUT EXAMINER) Anatomical Region Laterality Modality Breast Left Ultrasound, Othe r LEFT BREAST STRUCTURE / Unknown 07/08/2024 3:54 PM LIGHTOUT EXAMINER Impressions 07/08/2024 3:56 PM LIGHTOUT EXAMINER =====IMPRESSION:===== Ultrasound guidance for biopsy of left breast mass at the 11 position, 4 centimeters from the nipple. Ordered By: VAUGHN KOENIG Interpreted By: Fabien Hinkle MD, 07/08/2024 3:54 PM Narrative 07/08/2024 3:56 PM LIGHTOUT EXAMINER [facility] [address] [place] [address] Examination: Ultrasound breast biopsy. Exam date/time: 07/08/2024 1:47 PM Reason For Exam: Abnormal mammogram and ultrasound Comparison: 05/06/2024 Technique: Transcutaneous ultrasound evaluation of the area of concern in the left breast was performed for analysis of grayscale and color doppler imaging characteristics as well as guidance for Mammotome biopsy performed by Dr. Koenig Findings: Ultrasound localization of left breast mass at the 11 position, 4 centimeters from the nipple was performed. Multiple biopsy attempts were performed. According to technologist, no clip was deployed as the mass in breast tissue was very mobile and Dr. Koenig was unable to obtain tissue from the mass at 11:00, 4 cm from the nipple. Procedure was performed by Dr. Koenig. I was not present for present procedure. us Vaughn Koenig MD ULTRASOUND Final Result * BONE DENSITY/DEXA (04/13/2024 10:18 AM LIGHTOUT EXAMINER) Anatomical Region Laterality Modality Bone Bone Density 04/14/2024 8:22 AM LIGHTOUT EXAMINER Impressions 04/14/2024 8:23 AM LIGHTOUT EXAMINER IMPRESSION: WHO Classification: osteopenia RECOMMENDATIONS: All patients should ensure an adequate intake of dietary calcium and vitamin D. The NOF recommend adults under the age of 50 need 1000 mg of calcium and 400-800 IU of vitamin D daily. Effective therapy for the prevention and treatment of osteoporosis include bisphosphonates. FOLLOW-UP: People with diagnosed cases of osteoporosis or at high risk for fracture should have regular bone mineral density test. For patients eligible for Medicare, routine testing is allowed once every 2 years. Testing frequency can be increased to one year for patients who have rapidly progressing disease, those who are receiving or discontinuing medical therapy to restore bone mass, or have additional risk factors. Ordered By: COLT PAGE Interpreted By: Alex Dickinson MD, 04/14/2024 8:22 AM Narrative 04/14/2024 8:23 AM LIGHTOUT EXAMINER [address] [place] [address] EXAMINATION: BONE DENSITY/DEXA INDICATIONS: Asymptomatic menopausal state COMPARISON: None TECHNIQUE: DEXA bone mineral density evaluation was performed in the AP projection over the lumbar spine and both hips utilizing standard imaging techniques. FINDINGS: The BMD measured at the AP spine L1-L4 is 1.106 g/cm? with a T-score of 0.5. The BMD measured at the left femoral neck is 0.780 g/cm? with a T-score of -0.6. The BMD measured at the left hip is 0.953 g/cm? with a T-score of 0.1. The BMD measured at the right femoral neck is 0.665 g/cm? with a T-score of - 1.7. The BMD measured at the right hip is 0.928 g/cm? with a T-score of -0.1. FRAX 10-year fracture risk: Major Osteoporotic Fracture: 9.8% Hip Fracture: 1.5% Procedure Note Alex Dickinson MD - 04/14/2024 [facility] [address] [place] [address] EXAMINATION: BONE DENSITY/DEXA INDICATIONS: Asymptomatic menopausal state COMPARISON: None TECHNIQUE: DEXA bone mineral density evaluation was performed in the APprojection over the lumbar spine and both hips utilizing standard imagingtechniques. FINDINGS: The BMD measured at the AP spine L1-L4 is 1.106 g/cm? with a T-score of0.5. The BMD measured at the left femoral neck is 0.780 g/cm? with a T-score of-0.6. The BMD measured at the left hip is 0.953 g/cm? with a T-score of 0.1. The BMD measured at the right femoral neck is 0.665 g/cm? with a T-scoreof -1.7. The BMD measured at the right hip is 0.928 g/cm? with a T-score of -0.1. FRAX 10-year fracture risk: Major Osteoporotic Fracture: 9.8% Hip Fracture: 1.5% IMPRESSION: WHO Classification: osteopenia RECOMMENDATIONS: All patients should ensure an adequate intake of dietary calcium andvitamin D. The NOF recommend adults under the age of 50 need 1000 mg ofcalcium and 400-800 IU of vitamin D daily. Effective therapy for theprevention and treatment of osteoporosis include bisphosphonates. FOLLOW-UP: People with diagnosed cases of osteoporosis or at high risk for fractureshould have regular bone mineral density test. For patients eligible forMedicare, routine testing is allowed once every 2 years. Testing frequencycan be increased to one year for patients who have rapidly progressingdisease, those who are receiving or discontinuing medical therapy torestore bone mass, or have additional risk factors. Ordered By: COLT PAGE Interpreted By: Alex Dickinson MD, 04/14/2024 8:22 AM us Colt Page MD DEXA Final Result * Colonoscopy (06/03/2000 12:00 AM LIGHTOUT EXAMINER) 06/03/2000 06/03/2000 Narrative [facility] TO EPIC CONVERSION - 06/03/2000 12:00 AM LIGHTOUT EXAMINER Documented hx of procedure Procedure Note Kaela Gonzalez MD - 04/06/2018 Documented hx of procedure us Generic Anjel Gonzalez MD GI PROCEDURE ORDERABLES Final Result [facility] TO EPIC CONVERSION from Last 3 Months or Most Recently Relevant to Health Maintenance Insurance MEDICARE [facility] Care Teams Dump Truck Driver Off Highway Relationship Specialty Start Date End Date Colt Page MD [address] [place] [address] PCP - General FAMILY PRACTICE 12/31/19
--- OUTSIDE RECORDS SUMMARY | 2024-09-08 13:31 | XMS_ITS | Referral Summary ---
Author Organization [facility] Address [address] [place] [phone] Care Team Providers Care Automotive Sales Manager Name Role Phone Fabien Brannon MD Primary Care Provider Allergies No known active allergies Medications cephalexin (KEFLEX) 250 mg capsule TAKE 2 CAPSULES BY MOUTH FOUR TIMES DAILY 08/22/[address] (CYMBALTA) 30 mg capsule 06/28/2020 Active FLUoxetine (PROzac) 20 mg capsule 06/28/2020 Active ibuprofen (ADVIL,MOTRIN) 400 mg tablet Take 400 mg by mouth every 8 (eight) hours 08/22/2020 Active Synthroid 100 mcg tablet 07/12/2020 Active loperamide (IMODIUM) 2 mg capsule 08/03/2020 Active meloxicam (MOBIC) 15 mg tablet 08/03/2020 Active Myrbetriq 50 mg tablet extended release 24 hr 06/28/2020 Activ e omeprazole (PriLOSEC) 40 mg capsule 08/03/2020 Active pregabalin (LYRICA) 150 mg capsule 06/30/2020 Active Crestor 20 mg tablet 06/29/2020 Active Spiriva Respimat 2.5 mcg/actuation inhaler 07/04/2020 Active tiZANidine (ZANAFLEX) 4 mg tablet 06/28/2020 Active traMADoL (ULTRAM) 50 mg tablet 06/30/2020 Active Active Problems Problem Noted Date Diagnosed Date Post-operative state 09/15/2020 Post-operative state 07/28/2013 Social History Tobacco Use Types Packs/Day Years Used Date Smoking Tobacco: Former Smokeless Tobacco: Former Personal Safety Answer Date Recorded Getting School Help Needed Not on file 07/27 Comments Unknown Sex and Gender Information Value Date Recorded Sex Assigned at Not on file 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 Gender Identity Not on file Sexual Orientation Not on file Occupation Industry Job Start Date Job End Date retired Not on file Not on file Not on file Last Filed Vital Signs Vital Sign Reading Time Taken Comments Blood Pressure 144/78 08/22/2020 3:44 PM CDT Pulse 91 08/22/2020 3:44 PM CDT Temperature 36.7 C (98.1 F) 08/22/2020 3:44 PM CDT Respiratory Rate - - Oxygen Saturation 93% 08/22/2020 3:44 PM CDT Inhaled Oxygen Concentration - - Weight 101.2 kg (223 lb) 08/25/2020 9:01 AM CDT Height 160 cm (5' 3 ) 08/25/2020 9:01 AM CDT Body Mass Index 39.5 08/25/2020 9:01 AM CDT Plan of Treatment Not on [place] [place] [address] Care Teams Automotive Sales Manager Relationship Specialty Start Date End Date Fabien Brannon MD [address] [facility] [address] [place] [address] PCP - General 09/09/20
--- OUTSIDE RECORDS SUMMARY | 2024-09-08 13:31 | XMS_ITS | Encounter Summary ---
Author Organization [facility] Address [address] [place] [address] Care Team Providers Care Pool Nurse Name Role Phone Unavailable Primary Care Provider Unavailabl e Encounter Details Date Type Department Care Team (Late st Contact Info) Description 08/25/2002 Outpatient Historical [facility] MAMM Jose Medrano MD NO ADDRESS ON FILE SCREENING MAMM-MAILG NEOPL-OTHER (Primary Dx) Social History Tobacco Use Types Packs/Day Years Used Date Smoking Tobacco: Never Assessed Comments Unknown Sex and Gender Information Value Date Recorded Sex Assigned at Not on file Legal Sex Female 5:14 AM CONTACT CENTER REP Gender Identity Not on file Sexual Orientation Not on file documented as of this encounter Plan of Treatment Not on file documented as of this encounter Visit Diagnoses Diagnosis Other screening mammogram- Primary documented in this encounter
--- OUTSIDE RECORDS SUMMARY | 2024-09-08 13:31 | XMS_ITS | Clinical Summary ---
Author Organization [facility] Address [address] [place] [phone] Care Team Providers Care Vulcanizer Operator Name Role Phone Fabien Brannon MD Primary [...] Date Post-operative state 09/15/2020 Post-operative state 07/28/2013 Medical History Medical History Date Comments Anemia Asthma Bleeding disorder Hypercholesteremia Osteoarthritis Osteoporosis Thyroid disease Migraines Family History Medical History Relation Name Comments Arthritis Father Family history of arthritis - (Added by TW Pily) Relation Name Status Comments Father Social History Tobacco Use Types Packs/Day Years Used Date Smoking Tobacco: Former Smokeless Tobacco: Former Personal Safety Answer Date Recorded Getting School Help Needed Not on file 07/27 Comments Unknown Sex and Gender Information Value Date Recorded Sex Assigned at Not on file 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
--- OUTSIDE RECORDS SUMMARY | 2024-09-08 13:31 | XMS_ITS | Encounter Summary ---
Author Organization [facility] Address 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 Gender Identity Not on file Sexual Orientation Not on file documented as of this encounter Plan of Treatment Not on file documented as of this encounter Procedures Procedure Name Priority Date/Time Associated Diagnosis Comments MAMMO SCREENING BILAT Routine 09/10/2007 3:11 PM CDT documented in this encounter Results * MAMMO SCREENING BILAT (09/10/2007 3:11 PM CDT) Anatomical Region Laterality Modality Breast Bilateral Other 09/10/2007 3:11 PM CDT Narrative 09/11/2007 3:23 PM CDT [place] [address] [place], [place] [address] Admit Date: 09/10/2007 RENATA HILL Sex: F Admit Prov: JUAN CASEY Date: 1955 Primary Care Prov: CMRN: [id number] [facility] [id number] IM[facility] SERVICES Ordering Prov: JUAN CASEY Accession Number: [id number] Interpretation Bilateral screening mammograms 09/10/2007 Reason for [...] Procedure Note Nadeem Hanson MD - 09/11/2007 [facility] [place] [address] [place], [place] [address] Admit Date: 09/10/2007 RENATA HILL Sex: F Admit Prov: JUAN CASEY Date: 1955 Primary Care Prov: CMRN: [id number] [facility] [id number] IMAGING SERVICES Ordering Prov: JUAN CASEY Interpretation [...] exam which is now available at the [facility]. Assessment BIRADS: 0-Incomplete: Need additional imagingevaluation Recommendation: Additional projections Ultrasound Dictated by: NADEEM HANSON Electronically signed by: NADEEM HANSON 09/11/2007 15:23 Transcribed: 09/11/2007 13:53 AMK us Juan Casey MD MAMMO ORDERABLES Final Result documented in this encounter Visit Diagnoses Diagnosis Other screening mammogram documented in this encounter
[2024-09-08 13:46] LABS: Thyroid Stimulating Hormone < 0.015 uIU/mL (0.465-4.680)
== END 2024-09-08 12:26 | disposition home or self-care (01) ==
PROVIDERS: PCP Family Medicine; Visit Provider Family Medicine
DX: I12.9 Hypertensive chronic kidney disease with stage 1 through stage 4 chronic kidney disease, or unspecified chronic kidney disease (principal); N18.30 Chronic kidney disease, stage 3 unspecified; E03.9 Hypothyroidism, unspecified
CPT/HCPCS: 36415; 80048; 84443

== ENCOUNTER 2024-10-07 13:06 | Outpatient (CLI) | payer MEDICARE, OTHER, SELFPAY ==
[2024-10-07 13:00] VITALS: PULSE 72; O2SAT 93
[2024-10-07 13:05] VITALS: PULSE 88; O2SAT 91
[2024-10-07 13:15] VITALS: PULSE 75; O2SAT 94
--- OUTSIDE RECORDS SUMMARY | 2024-10-07 13:17 | XMS_ITS | Encounter Summary ---
Author Organization [facility] Address 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
--- OUTSIDE RECORDS SUMMARY | 2024-10-07 13:17 | XMS_ITS | Referral Summary ---
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 [address] [place] [address] PCP - General 09/09/20
--- OUTSIDE RECORDS SUMMARY | 2024-10-07 13:17 | XMS_ITS | Clinical Summary ---
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 Gender Identity Not on file Sexual Orientation [...] PM CDT Narrative 09/11/2007 3:23 PM CDT [facility] [place] [address] [place], [place] [address] Admit Date: 09/10/2007 RENATA HILL Sex: F Admit Prov: JUAN CASEY Date: 1955 Primary Care Prov: CMRN: [id number] [facility] [id number] IMAGING SERVICES Ordering Prov: JUAN CASEY Accession Number: [id number] Interpretation Bilateral screening mammograms 09/10/2007 Reason for [...] Procedure Note Nadeem Hanson MD - 09/11/2007 [place] [address] [place], [place] [address] Admit Date: 09/10/2007 SERGIO RENATA Dano Sex: F Admit Prov: JUAN CASEY Date: 1955 Primary Care Prov: CMRN: [id number] [facility] [id number] IMAGING SERVICES Ordering Prov: JUAN CASEY Interpretation [...]
--- OUTSIDE RECORDS SUMMARY | 2024-10-07 13:17 | XMS_ITS | Encounter Summary ---
Author Organization [facility] Address 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
--- OUTSIDE RECORDS SUMMARY | 2024-10-07 13:17 | XMS_ITS | Encounter Summary ---
Author Organization [facility] Address 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 Gender Identity Not on file Sexual Orientation [...] PM CDT Narrative 09/11/2007 3:23 PM CDT [place] [address] [address] [place], [place] [address] Admit Date: 09/10/2007 RENATA HILL Sex: F Admit Prov: JUAN CASEY Date: 1955 Primary Care Prov: CMRN: [id number] [facility] [id number] IM[facility]ING SERVICES Ordering Prov: JUAN CASEY Accession Number: [id number] Interpretation Bilateral screening mammograms 09/10/2007 Reason for [...] Procedure Note Nadeem Hanson MD - 09/11/2007 [facility] [place] [address] [place], [place] [address] Admit Date: 09/10/2007 RENATA HILL Sex: F Admit Prov: JUAN CASEY Date: 1955 Primary Care Prov: CMRN: [id number] [facility] [id number] IMAGING SERVICES Ordering Prov: JUAN CASEY Interpretation [...] exam which is now available at the [facility]. Assessment BIRADS: 0-Incomplete: Need additional imagingevaluation Recommendation: Additional projections Ultrasound Dictated by: NADEEM HANSON Electronically signed by: NADEEM HANSON 09/11/2007 15:23 Transcribed: 09/11/2007 13:53 AMK us Juan Casey MD MAMMO ORDERABLES Final Result documented in this encounter Visit Diagnoses Diagnosis Other screening mammogram documented in this encounter
--- OUTSIDE RECORDS SUMMARY | 2024-10-07 13:17 | XMS_ITS | Encounter Summary ---
Author Organization [facility] Address 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
--- OUTSIDE RECORDS SUMMARY | 2024-10-07 13:17 | XMS_ITS | Clinical Summary ---
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
--- OUTSIDE RECORDS SUMMARY | 2024-10-07 13:18 | XMS_ITS | Encounter Summary ---
Author Organization [facility] Address 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
--- OUTSIDE RECORDS SUMMARY | 2024-10-07 13:18 | XMS_ITS | Clinical Summary ---
Author Organization [facility] Address [address] [place] [address] Care Team Providers Care Tooth Inspector Name Role Phone Colt Page MD Primary Care Provider [phone] Allergies No known active allergies Medications aspirin (ASPIRIN 81) 81 MG chewable tablet Chew 1 tablet (81 mg total) by mouth daily. 3 Active Vienna-3 Fatty Acids (FISH OIL TRIPLE STRENGTH) 1400 [...] Oral Capsule Extended ReleaseTAKE 1 C PO [id number] siobhan 8 Active pimecrolimus (ELIDEL) 1 % [...] Department Care Team Description 07/29/2024 2:20 PM MEDICARE SPECIALIST Office Visit [facility] General Surgery - [address], [address] [place] [address] Emely Koenig MD Postop Followup (PO left breast biopsy 07/13/24) 07/29/2024 Travel 07/13/2024 4:03 PM MEDICARE SPECIALIST - 07/13/2024 11:59 PM MEDICARE SPECIALIST Hospital Encounter [facility] [address] [place] [address] Emely Koenig MD Discharge Disposition: Home or Self Care (Routine Discharge) 07/13/2024 1:37 PM MEDICARE SPECIALIST - 07/13/2024 4:02 PM MEDICARE SPECIALIST Hospital Encounter [facility] [address] [place] [address] Emely Koenig MD Discharge Disposition: Home or Self Care (Routine Discharge) 07/13/2024 Travel 07/10/2024 Orders Only [facility] General Surgery [address], [address] [place] [address] Emely Koenig MD from Last 3 Months Family History Medical [...] Sex Assigned at Female 07/29/2024 2:28 PM MEDICARE SPECIALIST Legal Sex Female 5:03 PM CDT Gender Identity Female 07/29/2024 2:28 PM MEDICARE SPECIALIST Sexual Orientation Not on file Last Filed Vital Signs Vital Sign Reading Time Taken Comments Blood Pressure 122/74 07/29/2024 2:28 PM MEDICARE SPECIALIST Pulse 94 07/29/2024 2:28 PM MEDICARE SPECIALIST Temperature 36.3 C (97.4 F) 07/29/2024 2:28 PM MEDICARE SPECIALIST Respiratory Rate 22 07/29/2024 2:28 PM MEDICARE SPECIALIST Oxygen Saturation 92% 07/29/2024 2:28 PM MEDICARE SPECIALIST Inhaled Oxygen Concentration - - Weight 86.2 kg (190 lb) 06/24/2024 1:53 PM MEDICARE SPECIALIST Height 160 cm (5' 3 ) 08/15/2020 7:42 AM CDT Body Mass Index 33.66 08/15/2020 7:42 AM CDT Plan of Treatment Upcoming Encounters Date Type Department Care Team (Late st Contact Info) Description 01/27/2025 2:20 PM CDT Office Visit [facility] General Surgery [address], [address] [place] [address] Emely Koenig MD [address] [facility] [address] [place] [address] Health Maintenance Due Date Last Done Comments COVID-19 Vaccine (#1) 1958 Hepatitis C 1971 Colorectal Cancer Screening Colonoscopy (10 Years) 06/03/2010 06/03/2000 RSV Immunization or 60+ Years (1 - Risk 60-74 years 1-dose series) 2013 Annual Medicare Wellness Visit 2018 Pneumococcal Vaccine: 50+ Years (2 of 2 - PPSV23) 04/20/2019 02/23/2019, 03/15/2015 DTaP, Tdap and Td Vaccines (2 - Td or Tdap) 04/02/2022 04/02/2012 Mammogram Screening 07/13/2026 07/13/2024, 05/06/2024, 04/13/2024, Additional history exists Zoster Vaccines Completed 04/24/2019, 02/02, 1955 Dexa Scan (General) Completed 04/13/2024, PHQ-2 (Physician Dagmar) Completed 07/29/2024 Meningococcal B Vaccine Aged Out [...] LT DIAG MAMMO Routine 07/13/2024 3:25 PM MEDICARE SPECIALIST Abnormality of left breast on screening mammogram MG TISSUE STUDY LOC LT Routine 07/13/2024 3:19 PM MEDICARE SPECIALIST Abnormality of left breast on screening mammogram PATHOLOGY Routine 07/13/2024 12:00 AM MEDICARE SPECIALIST BONE DENSITY/DEXA Routine 04/13/2024 10: 18 AM MEDICARE SPECIALIST Asymptomatic menopausal state COLONOSCOPY Routine 06/03/2000 12:00 AM MEDICARE SPECIALIST from Last 3 Months or Most Recently Relevant to Health Maintenance Results * MG POST PROC LT DIAG MAMMO (07/13/2024 3:25 PM MEDICARE SPECIALIST) Anatomical Region Laterality Modality Breast Left Mammography 07/14/2024 8:21 AM MEDICARE SPECIALIST Impressions 07/14/2024 8:31 AM MEDICARE SPECIALIST IMPRESSION: Post biopsy as described. Correlation with the intraprocedural findings required. Recommendation: 1: Clinical correlation Bilateral Return for Routine Follow-Up: No Assessment: Post procedure mammogram for marker placement. Ordered By: EMELY KOENIG Interpreted By: Jackson Bhatti MD, 07/14/2024 8:21 AM Narrative 07/14/2024 8:31 AM MEDICARE SPECIALIST [place] [phone] Examination: Digital left diagnostic mammogram. Clinical history: Postbiopsy. Comparison: 05/06/2024, 04/13/2024 ([facility]). Technique:CC and true lateral left digital mammograms . Tissue density: The breast tissue is heterogeneously dense. Findings: The images document stereotactic biopsy of the target calcification near the 11:00 position with adequate positioning of the tissue marker. No postbiopsy hematoma is evident. Correlation with the intraprocedural findings is required. us Emely Koenig MD MAMMO Final Result * MG TISSUE STUDY LOC LT (07/13/2024 3:19 PM MEDICARE SPECIALIST) Anatomical Region Laterality Modality Breast Mammography 07/14/2024 8:31 AM MEDICARE SPECIALIST Impressions 07/14/2024 8:34 AM MEDICARE SPECIALIST IMPRESSION: Target calcification is present within the specimens submitted. Correlation with the intraprocedural findings required. Ordered By: EMELY KOENIG Interpreted By: Jackson Bhatti MD, 07/14/2024 8:31 AM Narrative 07/14/2024 8:34 AM MEDICARE SPECIALIST [address] [address] Examination: Specimen radiography. Exam time: 1439 hours. Clinical history: Sonographically suspicious mass with associated calcification. Monitoring for stereotactic biopsy. Comparison: Digital mammograms, 05/06/2024, 04/13/2024 ([facility]). Technique: Standard technique. Findings: Images document the target calcification within the specimens submitted. Correlation with the intraprocedural findings required. Procedure Note Jackson Bhatti MD - 07/14/[address] [address] Examination: Specimen radiography. Exam time: 1439 hours. Clinical history: Sonographically suspicious mass with associatedcalcification. Monitoring for stereotactic biopsy. Comparison: Digital mammograms, 05/06/2024, 04/13/2024 ([facility]). Technique: Standard technique. Findings: Images document the target calcification within the specimenssubmitted. Correlation with the intraprocedural findings required. IMPRESSION: Target calcification is present within the specimens submitted.Correlation with the intraprocedural findings required. Ordered By: EMELY KOENIG Interpreted By: Jackson Bhatti MD, 07/14/2024 8:31 AM Emely Koenig MD MAMMO Final Result * Pathology (07/13/2024 12:00 AM MEDICARE SPECIALIST) PATHOLOGY [facility] Department of Laboratory Medicine [address] [place] [address] , extension [phone] Pathology Report Surgical Pathology Report Name: RENATA HILL Specimen #: [id number] Age: 9 1955 (Age: 69) Location: [facility] [place] Sex: F Procedure Date: 07/13/2024 Hospital #: [id number] Date Received: 07/14/2024 Date Reported: 07/15/2024 Provider: EMELY KOENIG MD Source: Left breat, slightly medial [...] interpretation, and sign out were performed at [facility], [address] [place] [address], [place] [address]. Electronically Signed Out AJ MOLINA MD [facility] 07/13/2024 07/14/2024 2:5 8 PM MEDICARE SPECIALIST Comment:Left breat, slightly medial and inferior aspect, needle biopsies us Emely Koenig MD PATHOLOGY/CYTOLOGY ORDERABLE S Final Result [facility] [address] [place] [address], [id number] * BONE DENSITY/DEXA (04/13/2024 10:18 AM MEDICARE SPECIALIST) Anatomical Region Laterality Modality Bone Bone Density 04/14/2024 8:22 AM MEDICARE SPECIALIST Impressions 04/14/2024 8:23 AM MEDICARE SPECIALIST IMPRESSION: WHO Classification: osteopenia RECOMMENDATIONS: All patients [...] 04/14/2024 8:22 AM Narrative 04/14/2024 8:23 AM MEDICARE SPECIALIST [place] [phone] [place] [address] EXAMINATION: BONE DENSITY/DEXA INDICATIONS: Asymptomatic menopausal state [...] Procedure Note Alex Dickinson MD - 04/14/2024 [facility] [address] [place] [address] EXAMINATION: BONE DENSITY/DEXA INDICATIONS: Asymptomatic menopausal state [...] By: Alex Dickinson MD, 04/14/2024 8:22 AM Colt Page MD DEXA Final Result * Colonoscopy (06/03/2000 12:00 AM MEDICARE SPECIALIST) 06/03/2000 06/03/2000 Narrative [facility] TO EPIC CONVERSION - 06/03/2000 12:00 AM MEDICARE SPECIALIST Documented hx of procedure Procedure Note Kaela Cast MD - 04/06/2018 Documented hx of procedure us Generic Conversion Md CAST GI PROCEDURE ORDERABLES Final Result [facility] TO EPIC CONVERSION from Last 3 Months or Most Recently Relevant to Health Maintenance Insurance [facility] [employer] Care Teams Tooth Inspector Relationship Specialty Start Date End Date Colt Page MD [address] [place] [address] PCP - General FAMILY PRACTICE 12/31/19
--- NOTE | 2024-10-07 13:34 | HOMEO2EVAL ---
Evaluation was performed at [facility] Home Oxygen Evaluation RC: Home Oxygen (O2) Evaluation Start: 10/07/24 13:31 Freq: Status: Active Protocol: RPE Activity Type Activity Date Activity User E-sign Co-sign Detail Recorded Client Recorded Date Recorded By Document 10/07/24 13:00 PK [email or web address] 10/07/24 13:34 [facility] Document 10/07/24 13:05 [facility] [id number] 10/07/24 13:34 [facility] Document 10/07/24 13:15 [facility] [id number] 10/07/24 13:34 [facility] 10/07/24 10/07/24 10/07/24 13:00 13:05 13:15 Home O2 Evaluation [Oxygen] -Test Phase Resting Exercise Resting -Oxygen Delivery Room Air Room Air Room Air [Pulse Oximetry] -Pulse Oximetry (90-100 %) 93 91 94 [Pulse Rate] -Pulse Rate (60-100 beats/min) 72 88 75 [Evaluation] -Activity Tolerance Good [Exercise] -Ambulation Distance (feet) 100 -Ambulation Distance (meters) 30.47 [Charges] -Evaluation Charges O2 Evaluation by Pulmonary
== END 2024-10-07 13:07 | disposition home or self-care (01) ==
LOC: ANHPFT 13:07
PROVIDERS: PCP Family Medicine; Visit Provider Physician Assistant
DX: R91.8 Other nonspecific abnormal finding of lung field (principal)
CPT/HCPCS: 94618

== ENCOUNTER 2024-10-27 10:22 | Outpatient (CLI) | payer MEDICARE, OTHER, SELFPAY ==
--- NOTE | ~2024-10-27 | CT_ITS ---
CT Scan of the Chest without Contrast: Clinical Indication: Lung cancer screening, nicotine dependence Technique: Contiguous sections were acquired throughout the chest without intravenous contrast. Dose reduction technique was used on this scan by utilizing automated exposure control and iterative recon struction technique. The dose-length product (DLP) was 129.04 mGy-cm. COMPARISON: 10/24/2023 Findings: There is no evidence of any significant mediastinal, hilar or axillary lymphadenopathy. The mediastin al soft tissues appear normal. There is no evidence of pleural or pericardial effusion. Stable calcified right upper lobe granuloma. Stable minimal biapical scarring. There is mild to moder ate emphysema. A few peripheral 2-3 mm nodules are present, similar to prior exam. Images through the upper abdomen reveal no abnormalities. Chronic L1 compression fracture present. Th ere is severe fatty atrophy of the pancreas. Impression: Lung RADS 2: Benign appearance. 12 month follow-up screening CT advised. Reviewed, dictated and finalized at [facility]. Impression: Lung RADS 2: Benign appearance. 12 month follow-up screening CT advised.
--- OUTSIDE RECORDS SUMMARY | 2024-10-27 10:30 | XMS_ITS | Encounter Summary ---
Author Organization [facility] Address 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
--- OUTSIDE RECORDS SUMMARY | 2024-10-27 10:30 | XMS_ITS | Clinical Summary ---
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
--- OUTSIDE RECORDS SUMMARY | 2024-10-27 10:30 | XMS_ITS | Referral Summary ---
Author Organization [facility] Address [address] [place] [address] Care Team Providers Care Vp Of Marketing Name Role Phone Fabien Brannon MD Primary [...] on file Legal Sex Female 6:15 AM BEAM DYER Gender Identity Not on file Sexual Orientation [...] Plan of Treatment Not on [place] [place] [address] Care Teams Vp Of Marketing Relationship Specialty Start Date End Date Fabien Brannon MD [address] [facility] [address] [place] [address] PCP - General 09/09/20
--- OUTSIDE RECORDS SUMMARY | 2024-10-27 10:30 | XMS_ITS | Encounter Summary ---
Author Organization [facility] Address [address] [place] [address] Care Team Providers Care Wood Router Hand Name Role Phone Unavailable Primary Care Provider Unavailabl e Encounter Details Date Type Department Care Team (Late st Contact Info) Description 04/18/2006 Outpatient Historical HIS MAMM Juan Muñiz MD [address] [facility] [address] [place] [address] Other Screening Mammogram (Primary Dx) Social History Tobacco Use Types Packs/Day Years Used Date Smoking Tobacco: Never Assessed Comments Unknown Sex and Gender Information Value Date Recorded Sex Assigned at Not on file Legal Sex Female 5:14 AM MEDICAL DIRECTOR OF HOSPICE Gender Identity Not on file Sexual Orientation Not on file documented as of this encounter Plan of Treatment Not on file documented as of this encounter Visit Diagnoses Diagnosis Other screening mammogram- Primary documented in this encounter
--- OUTSIDE RECORDS SUMMARY | 2024-10-27 10:30 | XMS_ITS | Encounter Summary ---
Author Organization [facility] Address 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
--- OUTSIDE RECORDS SUMMARY | 2024-10-27 10:30 | XMS_ITS | Encounter Summary ---
Author Organization [facility] Address 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 Gender Identity Not on file Sexual Orientation [...] PM CDT Narrative 09/11/2007 3:23 PM CDT [address] [place], [place] [address] Admit Date: 09/10/2007 RENATA HILL Sex: F Admit Prov: JUAN CASEY Date: 1955 Primary Care Prov: CMRN: [id number] [facility] [id number] IM[facility] Ordering Prov: JUAN CASEY Accession Number: [id number] Interpretation Bilateral screening mammograms 09/10/2007 Reason for [...] Procedure Note Nadeem Hanson MD - 09/11/2007 [facility] [address] [place], [place] [address] Admit Date: 09/10/2007 RENATA HILL Sex: F Admit Prov: JUAN CASEY Date: 1955 Primary Care Prov: CMRN: [id number] [facility] [id number] IMAGING SERVICES Ordering Prov: JUAN CASEY Interpretation [...] exam which is now available at the [facility] center. Assessment BIRADS: 0-Incomplete: Need additional imagingevaluation Recommendation: Additional projections Ultrasound Dictated by: NADEEM HANSON Electronically signed by: NADEEM HANSON 09/11/2007 15:23 Transcribed: 09/11/2007 13:53 AMK us Juan Casey MD MAMMO ORDERABLES Final Result documented in this encounter Visit Diagnoses Diagnosis Other screening mammogram documented in this encounter
--- OUTSIDE RECORDS SUMMARY | 2024-10-27 10:30 | XMS_ITS | Encounter Summary ---
Author Organization [facility] Address 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
--- OUTSIDE RECORDS SUMMARY | 2024-10-27 10:30 | XMS_ITS | Clinical Summary ---
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 Gender Identity Not on file Sexual Orientation [...] PM CDT Narrative 09/11/2007 3:23 PM CDT [facility] [address] [place], [place] [address] Admit Date: 09/10/2007 RENATA HILL Sex: F Admit Prov: JUAN CASEY Date: 1955 Primary Care Prov: CMRN: [id number] [id number] [facility] Ordering Prov: JUAN CASEY Accession Number: [id number] Interpretation Bilateral screening mammograms 09/10/2007 Reason for [...] Procedure Note Nadeem Hanson MD - 09/11/2007 [address], [place] [address] Admit Date: 09/10/2007 SERGIO RENATA Dano Sex: F Admit Prov: JUAN CASEY Date: 1955 Primary Care Prov: CMRN: [id number] [facility] [id number] [facility] Ordering Prov: JUAN CASEY Interpretation [...]
== END 2024-10-27 10:23 | disposition home or self-care (01) ==
PROVIDERS: PCP Family Medicine; Visit Provider Physician Assistant
DX: Z12.2 Encounter for screening for malignant neoplasm of respiratory organs (principal); Z87.891 Personal history of nicotine dependence
CPT/HCPCS: 71271

== ENCOUNTER 2024-11-11 15:04 | Outpatient (CLI) | payer MEDICARE, OTHER, SELFPAY ==
[2024-11-11 15:36] LABS: Alanine Aminotransferase 23 U/L (6-35); Aspartate Amino Transferase 31 U/L (14-36)
--- OUTSIDE RECORDS SUMMARY | 2024-11-11 17:33 | XMS_ITS | Encounter Summary ---
Author Organization [facility] Address 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
--- OUTSIDE RECORDS SUMMARY | 2024-11-11 17:33 | XMS_ITS | Encounter Summary ---
Author Organization [facility] Address 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
--- OUTSIDE RECORDS SUMMARY | 2024-11-11 17:33 | XMS_ITS | Encounter Summary ---
Author Organization [facility] Address 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 Gender Identity Not on file Sexual Orientation [...] PM CDT Narrative 09/11/2007 3:23 PM CDT [address] [place], [place] [address] Admit Date: 09/10/2007 RENATA HILL Sex: F Admit Prov: JUAN CASEY Date: 1955 Primary Care Prov: CMRN: [id number] [id number] [facility] Ordering Prov: JUAN CASEY Accession Number: [id number] Interpretation Bilateral screening mammograms 09/10/2007 Reason for [...] Procedure Note Nadeem Hanson MD - 09/11/2007 [facility] [address] [place], [place] [address] Admit Date: 09/10/2007 RENATA HILL Sex: F Admit Prov: JUAN CASEY Date: 1955 Primary Care Prov: CMRN: [id number] [facility] [id number] IM[facility]ING [facility] Ordering Prov: JUAN CASEY Interpretation [...] exam which is now available at the [facility] center. Assessment BIRADS: 0-Incomplete: Need additional imagingevaluation Recommendation: Additional projections Ultrasound Dictated by: NADEEM HANSON Electronically signed by: NADEEM HANSON 09/11/2007 15:23 Transcribed: 09/11/2007 13:53 AMK us Juan Casey MD MAMMO ORDERABLES Final Result documented in this encounter Visit Diagnoses Diagnosis Other screening mammogram documented in this encounter
--- OUTSIDE RECORDS SUMMARY | 2024-11-11 17:33 | XMS_ITS | Referral Summary ---
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
--- OUTSIDE RECORDS SUMMARY | 2024-11-11 17:33 | XMS_ITS | Encounter Summary ---
Author Organization [facility] Address [address] [place] [address] Care Team Providers Care Shipping Supervisor Name Role Phone Unavailable Primary Care Provider Unavailabl e Encounter Details Date Type Department Care Team (Late st Contact Info) Description 04/18/2006 Outpatient Historical HIS MAMM Juan Muñiz MD [address] [facility] [address] [place] [address] Other Screening Mammogram (Primary Dx) Social History Tobacco Use Types Packs/Day Years Used Date Smoking Tobacco: Never Assessed Comments Unknown Sex and Gender Information Value Date Recorded Sex Assigned at Not on file 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
--- OUTSIDE RECORDS SUMMARY | 2024-11-11 17:33 | XMS_ITS | Encounter Summary ---
Author Organization [facility] Address 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
--- OUTSIDE RECORDS SUMMARY | 2024-11-11 17:33 | XMS_ITS | Clinical Summary ---
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
--- OUTSIDE RECORDS SUMMARY | 2024-11-11 17:33 | XMS_ITS | Clinical Summary ---
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 Gender Identity Not on file Sexual Orientation [...] PM CDT Narrative 09/11/2007 3:23 PM CDT [facility] [address] [place], [place] [address] Admit Date: 09/10/2007 RENATA HILL Sex: F Admit Prov: JUAN CASEY Date: 1955 Primary Care Prov: CMRN: [id number] [facility] [id number] [facility] Ordering Prov: JUAN CASEY Accession Number: [id number] Interpretation Bilateral screening mammograms 09/10/2007 Reason for [...] Procedure Note Nadeem Hanson MD - 09/11/2007 [address] [place], [place] [address] Admit Date: 09/10/2007 SERGIO RENATA Dano Sex: F Admit Prov: JUAN CASEY Date: 1955 Primary Care Prov: CMRN: [id number] [facility] [id number] [facility] Ordering Prov: JUAN CASEY Interpretation [...]
== END 2024-11-11 15:05 | disposition home or self-care (01) ==
LOC: ANHLAB 15:05
PROVIDERS: PCP Family Medicine; Visit Provider Podiatrist Foot & Ankle Surgery
DX: B35.1 Tinea unguium (principal)
CPT/HCPCS: 36415; 84450; 84460

== ENCOUNTER 2025-02-17 15:04 | Outpatient (CLI) | payer MEDICARE, OTHER, SELFPAY ==
--- OUTSIDE RECORDS SUMMARY | 2025-02-17 15:51 | XMS_ITS | Encounter Summary ---
Author Organization [facility] Address 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 Gender Identity Not on file Sexual Orientation [...] PM CDT Narrative 09/11/2007 3:23 PM CDT [address] [place], [place] [address] Admit Date: 09/10/2007 RENATA HILL Sex: F Admit Prov: JUAN CASEY Date: 1955 Primary Care Prov: CMRN: [id number] [facility] [id number] [facility] Ordering Prov: JUAN CASEY Accession Number: [id number] Interpretation Bilateral screening mammograms 09/10/2007 Reason for [...] Procedure Note Nadeem Hanson MD - 09/11/2007 [facility] [address] [place], [place] [address] Admit Date: 09/10/2007 RENATA HILL Sex: F Admit Prov: JUAN CASEY Date: 1955 Primary Care Prov: CMRN: [id number] [facility] [id number] IM[facility]ING [facility] Ordering Prov: JUAN CASEY Interpretation [...] which is now available at the [facility] center. Assessment BIRADS: 0-Incomplete: Need additional imagingevaluation Recommendation: Additional projections Ultrasound Dictated by: NADEEM HANSON Electronically signed by: NADEEM HANSON 09/11/2007 15:23 Transcribed: 09/11/2007 13:53 AMK us Juan Casey MD MAMMO ORDERABLES Final Result documented in this encounter Visit Diagnoses Diagnosis Other screening mammogram documented in this encounter
--- OUTSIDE RECORDS SUMMARY | 2025-02-17 15:51 | XMS_ITS | Encounter Summary ---
Author Organization [facility] Address 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
--- OUTSIDE RECORDS SUMMARY | 2025-02-17 15:51 | XMS_ITS | Encounter Summary ---
Author Organization [facility] Address 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
--- OUTSIDE RECORDS SUMMARY | 2025-02-17 15:51 | XMS_ITS | Encounter Summary ---
Author Organization [facility] Address 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
--- OUTSIDE RECORDS SUMMARY | 2025-02-17 15:51 | XMS_ITS | Clinical Summary ---
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 [address] [place] [address] PCP - General 09/09/20
--- OUTSIDE RECORDS SUMMARY | 2025-02-17 15:51 | XMS_ITS | Encounter Summary ---
Author Organization [facility] Address 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
--- OUTSIDE RECORDS SUMMARY | 2025-02-17 15:51 | XMS_ITS | Clinical Summary ---
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 [address] [place], [place] [address] Admit Date: 09/10/2007 RENATA HILL Sex: F Admit Prov: JUAN CASEY Date: 1955 Primary Care Prov: CMRN: [id number] [facility] [id number] [facility] Ordering Prov: JUAN CASEY Accession Number: [id number] Interpretation Bilateral screening mammograms 09/10/2007 Reason for [...] Procedure Note Nadeem Hanson MD - 09/11/2007 [address] [place], [place] [address] Admit Date: 09/10/2007 SERGIO RENATA Dano Sex: F Admit Prov: JUAN CASEY Date: 1955 Primary Care Prov: CMRN: [id number] [facility] [id number] IM[facility] Ordering Prov: JUAN CASEY Interpretation [...]
[2025-02-17 15:54] LABS: Alanine Aminotransferase 35 U/L (6-35); Aspartate Amino Transferase 34 U/L (14-36)
== END 2025-02-17 15:05 | disposition home or self-care (01) ==
PROVIDERS: PCP Family Medicine; Visit Provider Podiatrist Foot & Ankle Surgery
DX: B35.1 Tinea unguium (principal)
CPT/HCPCS: 36415; 84450; 84460

== ENCOUNTER 2025-05-18 14:46 | Outpatient (CLI) | payer MEDICARE, OTHER, SELFPAY ==
[2025-05-18 15:30] LABS: Alanine Aminotransferase 23 U/L (6-35); Aspartate Amino Transferase 31 U/L (14-36)
--- OUTSIDE RECORDS SUMMARY | 2025-05-18 17:16 | XMS_ITS | Encounter Summary ---
Author Organization [facility] Address 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
--- OUTSIDE RECORDS SUMMARY | 2025-05-18 17:16 | XMS_ITS | Clinical Summary ---
Author Organization [facility] Address [address] [place] [address] Care Team Providers Care Refractory Specialist Name Role Phone Colt Page MD Primary Care Provider Allergies No known active allergies Medications aspirin (ASPIRIN 81) 81 MG chewable tablet Chew 1 tablet (81 mg total) by mouth daily. 3 Active Cinebar-3 Fatty Acids (FISH OIL TRIPLE STRENGTH) 1400 [...] Oral Capsule Extended ReleaseTAKE 1 C PO [id number] siobhan 8 Active pimecrolimus (ELIDEL) 1 % [...] Active Active Problems No known active problems Family History Medical History Relation Comments Breast [...] Sex Assigned at Female 07/29/2024 2:28 PM DISTRIBUTION TECH Legal Sex Female 5:03 PM CDT Gender Identity Female 07/29/2024 2:28 PM DISTRIBUTION TECH Sexual Orientation Not on file Last Filed Vital Signs Vital Sign Reading Time Taken Comments Blood Pressure 110/64 01/27/2025 2:26 PM CDT Pulse 91 01/27/2025 2:26 PM CDT Temperature 36.5 C (97.7 F) 01/27/2025 2:26 PM CDT Respiratory Rate 22 01/27/2025 2:26 PM CDT Oxygen Saturation 95% 01/27/2025 2:26 PM CDT Inhaled Oxygen Concentration - - Weight 85.4 kg (188 lb 3.2 oz) 01/27/2025 2:26 P M CDT Height 160 cm (5' 3) 01/27/2025 2:26 PM CDT Body Mass Index 33.34 01/27/2025 2:26 PM CDT Plan of Treatment Upcoming Encounters Date Type Department Care Team (Late st Contact Info) Description 07/28/2025 1:45 PM DISTRIBUTION TECH Office Visit [facility] General Surgery [address], [address] [place] [address] Emely Koenig MD [address] [place] [address] [place] [address] Health Maintenance Due Date Last Done Comments COVID-19 Vaccine (#1) 1958 Hepatitis C 1971 Colorectal Cancer Screening Colonoscopy (10 Years) 06/03/2010 06/03/2000 RSV Immunization or 60+ Years (1 - Risk 60-74 years 1-dose series) 2013 Annual Medicare Wellness Visit 2018 Pneumococcal Vaccine: 50+ Years (2 of 2 - PPSV23, PCV20, or PCV21) 04/20/2019 02/23/2019, 03/15/2015 DTaP, Tdap and Td Vaccines (2 - Td or Tdap) 04/02/2022 04/02/2012 Influenza Adult (#1) 2025 02/23/2019, 02/10/2018, 03/12/2017, Additional history exists Mammogram Screening 01/13/2027 01/13/2025, 07/13/2024, 05/06/2024, Additional history exists Zoster Vaccines Completed 04/24/2019, 02/02, 1955 Dexa Scan (General) Completed 04/13/2024, 1 PHQ-2 (Physician [place]) Completed 07/29/2024 Hepatitis A Vaccines Aged Out No long er eligible based on patient's age to complete this topic Meningococcal B Vaccine Aged Out No l onger eligible based on patient's age to complete this topic Meningococcal Vaccine Aged Out No rafia andrew eligible based on patient's age to complete this topic RSV Immunizations Under 20 Months Aged Out No longer eligible based on patient's age to complete this topic Procedures Procedure Name Priority Date/Time Associated Diagnosis Comments MG DIAG W GÓMEZ LT DIGI Routine 01/13/2025 2:36 PM CDT Status post left breast biopsy Inconclusive mammogram BONE DENSITY/DEXA Routine 04/13/2024 10: 18 AM DISTRIBUTION TECH Asymptomatic menopausal state COLONOSCOPY Routine 06/03/2000 12:00 AM DISTRIBUTION TECH from Last 3 Months or Most Recently Relevant to Health Maintenance Results * MG DIAG W GÓMEZ LT DIGI (01/13/2025 2:36 PM CDT) Anatomical Region Laterality Modality Breast Left Mammography, Rad iographic Imaging 01/13/2025 2:26 PM CDT Impressions 01/13/2025 2:31 PM CDT ===== IMPRESSION: ===== 1. No mammographic evidence of malignancy. Postbiopsy change noted Assessment: ACR BI-RADS 3 - PROBABLY BENIGN FINDING(S) - SHORT INTERVAL FOLLOW- UP SUGGESTED Recommendation: 1:Short interval follow-up in 6 months. Left Comments: Ordered By: EMELY KOENIG Interpreted By: Agata Gay, 01/13/2025 2:26 PM Narrative 01/13/2025 2:31 PM CDT [facility] [address] [place] [address] EXAMINATION: Digital left diagnostic mammogram with 3-D tomography EXAM DATE/TIME: 01/13/2025 1:50 PM REASON FOR EXAM: 6 month follow up imaging Benign biopsy on 07/13/2024 COMPARISON: 07/13/2024. 04/13/2024.. 05/06/2024 TECHNIQUE: Digital diagnostic mammography of the left breast was performed in addition to 3-D Tomosynthesis technique. This study was read with the assistance of a computer-aided detection system. TISSUE DENSITY: The breasts are heterogeneously dense, which may obscure small masses. Findings: Biopsy clip in region of prior asymmetry within the medial and slightly superior left breast. Anterior depth. Associated nodularity on CC imaging. Not as apparent on MLO imaging. May be post biopsy seroma. No malignant microcalcifications. No gross new lesions. us Emely Koenig MD MAMMO Final Result * BONE DENSITY/DEXA (04/13/2024 10:18 AM DISTRIBUTION TECH) Anatomical Region Laterality Modality Bone Bone Density 04/14/2024 8:22 AM DISTRIBUTION TECH Impressions 04/14/2024 8:23 AM DISTRIBUTION TECH IMPRESSION: WHO Classification: osteopenia RECOMMENDATIONS: All patients [...] 04/14/2024 8:22 AM Narrative 04/14/2024 8:23 AM DISTRIBUTION TECH [address] [place] [address] EXAMINATION: BONE DENSITY/DEXA INDICATIONS: Asymptomatic menopausal state [...] Procedure Note Alex Dickinson MD - 04/14/2024 [place] [id number] [facility] [place] [address] EXAMINATION: BONE DENSITY/DEXA INDICATIONS: Asymptomatic menopausal state [...] Final Result * Colonoscopy (06/03/2000 12:00 AM DISTRIBUTION TECH) 06/03/2000 06/03/2000 Narrative [facility] TO EPIC CONVERSION - 06/03/2000 12:00 AM DISTRIBUTION TECH Documented hx of procedure Procedure Note Kaela Gonzalez MD - 04/06/2018 Documented hx of procedure us Generic Anjel Gonzalez MD GI PROCEDURE ORDERABLES Final Result [facility] TO EPIC CONVERSION from Last 3 Months or Most Recently Relevant to Health Maintenance Insurance MEDICARE [employer] Care Teams Refractory Specialist Relationship Specialty Start Date End Date Colt Page MD [address] [place] [address] PCP - General FAMILY PRACTICE 12/31/19
--- OUTSIDE RECORDS SUMMARY | 2025-05-18 17:16 | XMS_ITS | Encounter Summary ---
Author Organization [facility] Address 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
--- OUTSIDE RECORDS SUMMARY | 2025-05-18 17:16 | XMS_ITS | Encounter Summary ---
Author Organization [facility] Address 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 Gender Identity Not on file Sexual Orientation [...] PM CDT Narrative 09/11/2007 3:23 PM CDT [facility] [address] [place], [place] [address] Admit Date: 09/10/2007 RENATA HILL Sex: F Admit Prov: JUAN CASEY Date: 1955 Primary Care Prov: CMRN: [id number] [id number] Ordering Prov: JUAN CASEY Accession Number: [id number] Interpretation Bilateral screening mammograms 09/10/2007 Reason for [...] Procedure Note Nadeem Hanson MD - 09/11/2007 [facility] [address] [place], [place] [address] Admit Date: 09/10/2007 RENATA HILL Sex: F Admit Prov: JUAN CASEY Date: 1955 Primary Care Prov: CMRN: [id number] [facility] [id number] IM[facility] Ordering Prov: JUAN CASEY Interpretation [...] exam which is now available at the [facility] center. Assessment BIRADS: 0-Incomplete: Need additional imagingevaluation Recommendation: Additional projections Ultrasound Dictated by: NADEEM HANSON Electronically signed by: NADEEM HANSON 09/11/2007 15:23 Transcribed: 09/11/2007 13:53 AMK us Juan Casey MD MAMMO ORDERABLES Final Result documented in this encounter Visit Diagnoses Diagnosis Other screening mammogram documented in this encounter
--- OUTSIDE RECORDS SUMMARY | 2025-05-18 17:16 | XMS_ITS | Clinical Summary ---
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 Gender Identity Not on file Sexual Orientation [...] PM CDT Narrative 09/11/2007 3:23 PM CDT [facility] [address] [place], [place] [address] Admit Date: 09/10/2007 RENATA HILL Sex: F Admit Prov: JUAN CASEY Date: 1955 Primary Care Prov: CMRN: [id number] [id number] [facility] Ordering Prov: JUAN CASEY Accession Number: [id number] Interpretation Bilateral screening mammograms 09/10/2007 Reason for [...] Procedure Note Nadeem Hanson MD - 09/11/2007 [place] [address] [place], [place] [address] Admit Date: 09/10/2007 SERGIO RENATA Dano Sex: F Admit Prov: JUAN CASEY Date: 1955 Primary Care Prov: CMRN: [id number] [facility] [id number] [facility] Ordering Prov: JUAN CASEY Interpretation [...]
--- OUTSIDE RECORDS SUMMARY | 2025-05-18 17:16 | XMS_ITS | Encounter Summary ---
Author Organization [facility] Address 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
--- OUTSIDE RECORDS SUMMARY | 2025-05-18 17:16 | XMS_ITS | Encounter Summary ---
Author Organization [facility] Address 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
--- OUTSIDE RECORDS SUMMARY | 2025-05-18 17:16 | XMS_ITS | Clinical Summary ---
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
== END 2025-05-18 14:47 | disposition home or self-care (01) ==
LOC: ANHLAB 14:50
PROVIDERS: PCP Family Medicine; Visit Provider Podiatrist Foot & Ankle Surgery
DX: B35.1 Tinea unguium (principal)
CPT/HCPCS: 36415; 84450; 84460